=== PATIENT | female | born 1940 | race Caucasian/White ===

== ENCOUNTER 2016-11-09 16:46 | Inpatient (IN) ==
--- NOTE | 2016-11-09 17:16 | Emergency Department Note ---
Disposition Clinical Impression: Symptoms of cerebrovascular accident (CVA), Slurred speech Disposition: Admitted As Inpatient Condition: Good Referrals: NO,PCP [Primary Care Provider] - Forms: ED Satisfaction Letter Time of Disposition: 18:58 Neuro HPI - General Chief Complaint: ED Neuro Symptoms/Deficit Stated Complaint: neuro symptoms Time Seen by Provider: 11/09/16 17:08 Source: patient, family Mode of arrival: ambulatory Limitations: no limitations Nursing Notes Reviewed: Yes Vital Signs Reviewed: Yes - History of Present Illness HPI Narrative: This is a 76-year-old female who presents with slurred speech, confusion, and a frontal headache starting at about 7 AM today. Patient states she feels like she is having slight trouble expressing herself but her slurred speech is improved. Patient has no focal deficits in her arms or legs. Patient is still ambulating. Patient has had no fevers. Patient denies any chest pain or shortness of breath. Patient is on a baby aspirin a day. Patient states she had a similar episode last summer that lasted about 2 hours and then resolved. Onset of Symptoms Date: 11/09/16 Onset of Symptoms Time: 07:00 Symptom Onset Unknown: Yes Timing confirmed by: family member Location: speech History of same: Yes Severity: mild Symptoms Improving: Yes - Related Data Home Medications: Home Medications Medication Instructions Recorded Confirmed Calcium Carbonate/Vitamin D3 1 each PO DAILY 11/09/16 11/09/16 [Calcium 500-Vit D3 200 Tablet] Cholecalciferol (D-3) [Vitamin D] 1,000 unit PO DAILY 11/09/16 11/09/16 Cyanocobalamin (Vitamin B-12) 250 mcg PO DAILY 11/09/16 11/09/16 [Vitamin B-12] LORazepam [Ativan] 1 mg PO HS PRN 11/09/16 11/09/16 Allergies/Adverse Reactions: Allergies Allergy/AdvReac Type Severity Reaction Status Date / Time No Known Allergies Allergy Verified 11/09/16 16:58 All systems ED: reviewed and negative except as stated. Constitutional: Denies: fever, chills, weakness, weight change Eyes: Denies: eye pain, eye discharge, vision change ENT ED: Denies: ear pain, throat pain, dental pain, hearing loss, epistaxis, congestion, dysphagia Cardiovascular: Denies: chest pain, palpitations, dyspnea on exertion, edema, syncope Respiratory: Denies: cough, dyspnea, wheezes, hemoptysis, stridor Gastrointestinal: Denies: abdominal pain, nausea, vomiting, diarrhea, constipation, hematemesis, melena, hematochezia Genitourinary: Denies: dysuria, frequency, hematuria, discharge Musculoskeletal: Denies: back pain, neck pain, arthralgia, myalgia Integumentary: Denies: rash, abrasion, lesions Neurological: Reports: headache, other (slurred speech). Denies: weakness, numbness, paresthesias, confusion, abnormal gait, vertigo Psychiatric: Denies: anxiety, depression, suicidal thoughts, homicidal thoughts , auditory hallucinations, visual hallucinations Endocrine: Denies: fatigue Hematological/Lymphatic: Denies: easy bleeding, easy bruising Allergic/Immunologic: Denies: facial swelling, urticaria Past Medical History - Past Medical History Attestation: Yes The following information was validated with the patient. Source: patient Medical history: Reports: cancer Psychiatric history: Reports: no psych history - Social History Smoking Status: Never smoker Smokeless Tobacco Status: No Alcohol use: Reports: none Drug use: Reports: none Physical Exam - General Limitations: no limitations General appearance: alert, in no apparent distress - Head Head exam: atraumatic, normocephalic, normal inspection - Eye Eye exam: Present: normal appearance, PERRL, EOMI - ENT ENT exam: normal exam, normal oropharynx, mucous membranes moist - Expanded ENT Exam External ear exam: Present: normal external inspection Mouth exam: Present: normal external inspection Teeth exam: Present: normal inspection Throat exam: Present: normal inspection - Neck Neck exam: Present: normal inspection, full ROM, trachea midline - Chest Chest inspection: Present: normal inspection, symmetric chest wall rise - Respiratory Respiratory exam: Present: normal lung sounds bilaterally - Cardiovascular Cardiovascular exam: Present: regular rate, normal rhythm, normal heart sounds - Abdominal Exam Abdominal exam: Present: soft, Non-Tender. Absent: tenderness, distention, guarding, rebound, rigidity - Extremities Exam Extremities exam: Present: normal inspection, full ROM. Absent: tenderness, pedal edema - Expanded Upper Extremity Exam Shoulder exam: Present: normal inspection, full ROM Arm exam: Present: normal inspection, full ROM Elbow exam: Present: normal inspection, full ROM Forearm/Wrist exam: Present: normal inspection, full ROM Hand exam: Present: normal inspection, full ROM Vascular exam: Normal: capillary refill, radial pulse - Expanded Lower Extremity Exam Hip/Pelvis exam: Present: normal inspection, full ROM Upper leg exam: Present: normal inspection, full ROM Knee exam: Present: normal inspection, full ROM Lower leg exam: Present: normal inspection, full ROM Ankle exam: Present: normal inspection, full ROM Foot/toe exam: Present: normal inspection, full ROM Neurovascular/Tendon exam: Absent: motor deficit, sensory deficit, tendon deficit - Back Exam Back exam: Present: normal inspection, full ROM. Absent: tenderness - Neurological Exam Neurological exam: Present: alert, oriented X3 - Expanded Neurological Exam Patient oriented to: Present: person, place, time Speech: Present: fluid speech Cranial nerves: EOM function (II, III, IV, ): Normal, facial sensation (V): Normal, facial palsy (VII): Normal, spinal accessory function (XI): Normal, tongue deviation (XII): Normal Motor strength - LUE: 5/5 Motor strength - RUE: 5/5 Motor strength - LLE: 5/5 Motor strength - RLE: 5/5 Sensory exam upper extremity: light touch: Normal Sensory exam lower extremity: light touch: Normal Coma Scale Eye Opening: Spontaneous Coma Scale Motor Response: Obeys Commands Coma Scale Verbal Response: Oriented Coma Scale Total: 15 - Psychiatric Psychiatric exam: Present: normal affect, normal mood - Skin Skin exam: Present: warm, dry, intact, normal color Course - Consultations Consultation #1: I spoke with Dr. Rodolfo gonzales to consult. Time: 19:11 Consultation #2: I spoke with the hospitalist janet to admit. Time: 19:54 Vital Signs Temperature 98.8 F 11/09/16 16:51 Pulse Rate 82 11/09/16 16:51 Respiratory Rate 18 11/09/16 16:51 Blood Pressure 186/91 11/09/16 16:51 O2 Sat by Pulse Oximetry 98 11/09/16 16:51 Temperature 98.8 F 11/09/16 16:51 Pulse Rate 82 11/09/16 16:51 Respiratory Rate 18 11/09/16 16:51 Blood Pressure 186/91 11/09/16 16:51 O2 Sat by Pulse Oximetry 98 11/09/16 16:51 Oxygen Delivery Oxygen Delivery Room Air Neuro Symptoms/Deficit - Medical Records Medical records reviewed: Yes I reviewed the patient's medical records. - Lab Data Lab results reviewed: Yes I reviewed the patient's lab results. Result diagrams: 11/09/16 17:46 11/09/16 17:46 Lab Results 11/09/16 11/09/16 11/09/16 Range/Units 17:10 17:46 17:46 WBC 7.4 (4.3-11.1) K/mcL RBC 4.04 (3.82-4.97) M/mcL Hgb 12.7 (11.5-15.4) g/dL Hct 39.4 (35.3-44.9) % MCV 97.5 (83.0-100.0) fL MCH 31.4 (28.0-33.3) pg MCHC 32.2 (31.6-35.5) g/dL RDW 12.4 (11.5-14.5) % Plt Count 289 (140-400) K/mcL MPV 9.5 (9.4-12.4) fL Immature Gran % 0.3 (0-4) % Seg Neutrophils % 70.1 % Lymphocytes % 17.0 % Monocytes % 10.2 % Eosinophils % 1.6 % Basophils % 0.8 % Neutrophils # 5.2 (1.6-8.9) K/mcL Lymphocytes # 1.3 (0.6-4.6) K/mcL Monocytes # 0.8 (0.0-1.3) K/mcL Eosinophils # 0.1 (0.0-0.6) K/mcL Basophils # 0.1 (0.0-0.2) K/mcL PT 11.4 (9.4-12.1) Seconds INR 1.1 APTT 31.0 (26.0-36.0) Seconds Sodium (136-145) mEq/L Potassium (3.5-4.5) mEq/L Chloride (98-109) mEq/L Carbon Dioxide (19-29) mEq/L BUN (7-20) mg/dL Creatinine (0.57-1.11) mg/dL Est GFR ( Amer) (> 60) Est GFR (Non-Af Amer) (> 60) BUN/Creatinine Ratio (6-26) Glucose (70-99) mg/dL Calculated Osmolality (280-300) Calcium (8.6-10.8) mg/dL Total Bilirubin (0.2-1.2) mg/dL Direct Bilirubin (0.0-0.5) mg/dL Indirect Bilirubin (0.0-1.2) mg/dL AST (5-34) Units/L ALT (0-55) Units/L Alkaline Phosphatase (38-126) Units/L Troponin I (0-0.03) ng/mL Serum Total Protein (6.0-8.3) g/dL Albumin (3.5-5.0) g/dL Globulin (2.4-3.5) g/dL Albumin/Globulin Ratio (1.1-2.2) TSH (0.350-4.840) mcIU/mL Urine Color Yellow (Yellow) Urine Clarity Clear (Clear) Urine pH 7.5 (5.0-8.0) pH Units Ur Specific [place] 1.009 L (1.010-1.025) Urine Protein Negative (Neg-Trace) mg/dL Urine Glucose (UA) Normal (Normal) mg/dL Urine Ketones Negative (Negative) mg/dL Urine Blood Small H (Negative) Urine Nitrite Negative (Negative) Urine Bilirubin Negative (Negative) Urine Urobilinogen Normal (Normal) mg/dL Ur Leukocyte Esterase Moderate H (Negative) Urine Microscopic RBC 0-3 (0-3) per hpf Urine Microscopic WBC 0-3 (0-3) per hpf Ur Squamous Epith Cells Many H (None-Few) per lpf Urine Bacteria None Seen (None-Few) per hpf Hyaline Casts None Seen (None-Few) per lpf Ur Culture Indicated? YES A (NO) 11/09/16 11/09/16 Range/Units 17:46 17:46 WBC (4.3-11.1) K/mcL RBC (3.82-4.97) M/mcL Hgb (11.5-15.4) g/dL Hct (35.3-44.9) % MCV (83.0-100.0) fL MCH (28.0-33.3) pg MCHC (31.6-35.5) g/dL RDW (11.5-14.5) % Plt Count (140-400) K/mcL MPV (9.4-12.4) fL Immature Gran % (0-4) % Seg Neutrophils % % Lymphocytes % % Monocytes % % Eosinophils % % Basophils % % Neutrophils # (1.6-8.9) K/mcL Lymphocytes # (0.6-4.6) K/mcL Monocytes # (0.0-1.3) K/mcL Eosinophils # (0.0-0.6) K/mcL Basophils # (0.0-0.2) K/mcL PT (9.4-12.1) Seconds INR APTT (26.0-36.0) Seconds Sodium 139 (136-145) mEq/L Potassium 3.9 (3.5-4.5) mEq/L Chloride 103 (98-109) mEq/L Carbon Dioxide 28 (19-29) mEq/L BUN 13 (7-20) mg/dL Creatinine 0.84 (0.57-1.11) mg/dL Est GFR ( Amer) > 60 (> 60) Est GFR (Non-Af Amer) > 60 (> 60) BUN/Creatinine Ratio 15 (6-26) Glucose 111 H (70-99) mg/dL Calculated Osmolality 289 (280-300) Calcium 10.4 (8.6-10.8) mg/dL Total Bilirubin 0.3 (0.2-1.2) mg/dL Direct Bilirubin 0.1 (0.0-0.5) mg/dL Indirect Bilirubin 0.2 (0.0-1.2) mg/dL AST 17 (5-34) Units/L ALT 15 (0-55) Units/L Alkaline Phosphatase 51 (38-126) Units/L Troponin I 0.00 (0-0.03) ng/mL Serum Total Protein 7.3 (6.0-8.3) g/dL Albumin 3.5 (3.5-5.0) g/dL Globulin 3.8 H (2.4-3.5) g/dL Albumin/Globulin Ratio 0.9 L (1.1-2.2) TSH 2.711 (0.350-4.840) mcIU/mL Urine Color (Yellow) Urine Clarity (Clear) Urine pH (5.0-8.0) pH Units Ur Specific [place] (1.010-1.025) Urine Protein (Neg-Trace) mg/dL Urine Glucose (UA) (Normal) mg/dL Urine Ketones (Negative) mg/dL Urine Blood (Negative) Urine Nitrite (Negative) Urine Bilirubin (Negative) Urine Urobilinogen (Normal) mg/dL Ur Leukocyte Esterase (Negative) Urine Microscopic RBC (0-3) per hpf Urine Microscopic WBC (0-3) per hpf Ur Squamous Epith Cells (None-Few) per lpf Urine Bacteria (None-Few) per hpf Hyaline Casts (None-Few) per lpf Ur Culture Indicated? (NO) - Radiology Data Radiology results reviewed: Yes I reviewed the patient's radiology results. - EKG Data EKG attestation: Yes I reviewed and interpreted this EKG. EKG shows normal: sinus rhythm Rate: normal Rhythm: NSR [place]/QRS: normal Interpretation: no acute changes, normal EKG TPA Checklist - LKW: 3-4.5 hrs Add. Contraindications Patient/family understanding: The patient/family members have been counseled and understood the risk, benefit , and alternatives of treatment.
[2016-11-09 17:26] LABS: Bilirubin,Urine Negative (Negative); Blood,Urine Small (Negative); Clarity,Urine Clear (Clear); Color,Urine Yellow (Yellow); Glucose,Urine (UA) Normal (Normal); Ketones,Urine Negative (Negative); Leukocyte Esterase,Urine Moderate (Negative); Nitrite,Urine Negative (Negative); PH,Urine 7.5 pH Units (5.0-8.0); Protein,Urine Negative (Neg-Trace); Specific Gravity,Urine 1.009 (1.010-1.025); Urobilinogen,Urine Normal (Normal)
[2016-11-09 17:28] LABS: Bacteria,Urine None Seen per hpf (None-Few); Hyaline Casts,Urine None Seen per lpf (None-Few); RBC,Urine 0-3 per hpf (0-3); Squamous Epithelial Cell,Urine Many per lpf (None-Few); WBC,Urine 0-3 per hpf (0-3)
[2016-11-09 18:17] LABS: Basophils # 0.1 K/mcL (0.0-0.2); Basophils % 0.8 %; Eosinophils # 0.1 K/mcL (0.0-0.6); Eosinophils % 1.6 %; Hematocrit 39.4 % (35.3-44.9); Hemoglobin 12.7 g/dL (11.5-15.4); Immature Granulocytes % 0.3 % (0-4); Lymphocytes # 1.3 K/mcL (0.6-4.6); Mean Corpuscular HGB Conc 32.2 g/dL (31.6-35.5); Mean Corpuscular Hemoglobin 31.4 pg (28.0-33.3); Mean Corpuscular Volume 97.5 fL (83.0-100.0); Mean Platelet Volume 9.5 fL (9.4-12.4); Monocytes # 0.8 K/mcL (0.0-1.3); Monocytes % 10.2 %; Neutrophils # 5.2 K/mcL (1.6-8.9); Platelet Count 289 K/mcL (140-400); Red Blood Count 4.04 M/mcL (3.82-4.97); Red Cell Distribution Width 12.4 % (11.5-14.5); Segmented Neutrophils % 70.1 %
[2016-11-09 18:26] LABS: INR 1.1; Prothrombin Time 11.4 Seconds (9.4-12.1)
[2016-11-09 18:32] LABS: Alanine Aminotransferase 15 Units/L (0-55); Albumin 3.5 g/dL (3.5-5.0); Albumin/Globulin Ratio 0.9 (1.1-2.2); Alkaline Phosphatase 51 Units/L (38-126); Aspartate Amino Transferase 17 Units/L (5-34); BUN/Creatinine Ratio 15 (6-26); Bilirubin,Direct 0.1 mg/dL (0.0-0.5); Bilirubin,Indirect 0.2 mg/dL (0.0-1.2); Bilirubin,Total 0.3 mg/dL (0.2-1.2); Blood Urea Nitrogen 13 mg/dL (7-20); Calcium 10.4 mg/dL (8.6-10.8); Carbon Dioxide 28 mEq/L (19-29); Chloride 103 mEq/L (98-109); Globulin 3.8 g/dL (2.4-3.5); Glucose 111 mg/dL (70-99); Osmolality,Calculated 289 (280-300); Potassium 3.9 mEq/L (3.5-4.5); Sodium 139 mEq/L (136-145); Total Protein 7.3 g/dL (6.0-8.3); eGFR For African Americans > 60 (> 60); eGFR For Non-African Americans > 60 (> 60)
[2016-11-09 18:54] LABS: Thyroid Stimulating Hormone 2.711 mcIU/mL (0.350-4.840)
[2016-11-09] MEDS ORDERED: Aspirin 325 MG TABLET PO ONE (18:58)
--- NOTE | 2016-11-09 23:19 | Internal Med History&Physical ---
Date of Encounter: 11/09/16 Time of Encounter: 23:17 Assessment and Plan (1) Slurred speech Current visit: Yes Status: Acute Patient admitted due to confusion, headache and slurred speech. CT did not reveal any intracranial bleeding or acute ischemic events. Hypertensive upon presentation. We will obtain a CT angiogram of the head for further evaluation. Would also consult with neurology for recommendations. Continue with aspirin. Continue with the stockings. Neuro checks. Echo. ESR. Internal Medicine - H&P: HPI Chief complaint: headache Admitted From: Emergency Dept Plans for Post Hospital Care: Home History of present illness: Ms. Rojas is a 76 year old female presented to emergency Department complaining of severe headache in the frontal area, and her speech and increased confusion. She denies focal motor weakness. Upon presentation in the emergency department and the blood pressure was 186/91, heart rate was 82/m , respiratory rate was 18/m, oxygen saturation was 98%. Initial blood work revealed hemopneumothorax 0.4, hematocrit 39, platelet count 189,000. INR 1.1. Sodium 139, potassium 3.9, chloride 103, bicarbonate 28, BUN 28, creatinine 0.84, glucose 111. Head CT did not reveal acute abnormality. Chest x-ray was also unremarkable. The patient was admitted for further management and workup. Patient denies fever, chills, diarrhea. Past Med Surg Social Fam HX - Past Medical History Medical history: cancer Psychiatric history: no psych history - Social History Smoking Status: Never smoker Smokeless Tobacco Status: No Alcohol use: none Drug use: none Internal Medicine - H&P: Meds Calcium Carbonate/Vitamin D3 [Calcium 500-Vit D3 200 Tablet] 1 each PO DAILY [History] Cholecalciferol (D-3) [Vitamin D] 1,000 unit PO DAILY 11/09/16 [History] Cyanocobalamin (Vitamin B-12) [Vitamin B-12] 250 mcg PO DAILY 11/09/16 [History] LORazepam [Ativan] 1 mg PO HS PRN 11/09/16 [History] Allergies No Known Allergies Allergy (Verified 11/09/16 16:58) All Systems PM: A 10-system review of systems was performed and is negative for pertinent findings except as documented above in the HPI. - Constitutional Constitutional: as per HPI, no chills, no fever(s), no night sweats - EENT Eyes: as per HPI, no change in vision, no discharge, no pain, no photophobia Ears: as per HPI, no ear discharge, no ear pain, no tinnitus Nose, mouth and throat: as per HPI, no dysphagia, no nasal discharge, no neck pain, no sore throat - Breasts Breasts: as per HPI - Cardiovascular Cardiovascular ROS IM: as per HPI, no chest pain, no diaphoresis, no dyspnea, no lightheadedness, no palpitations, no syncope - Respiratory Respiratory: as per HPI, no cough, no dyspnea, no wheezing, no excessive phlegm production - Gastrointestinal Gastrointestinal: as per HPI, no abdominal pain, no diarrhea, no hematemesis, no hematochezia, no melena, no nausea, no vomiting - Genitourinary Genitourinary: as per HPI, no change in urinary stream, no dysuria, no flank pain, no hematuria Menstruation: as per HPI - Musculoskeletal Musculoskeletal ROS IM: as per HPI, no numbness, no tingling - Integumentary Integumentary IM: as per HPI, no rash, no unusual bruising - Neurological Neurological ROS: as per HPI, no confusion, no convulsions, no focal weakness, no numbness, no tingling, no tremor(s) - Psychiatric Psychiatric: as per HPI - Endocrine Endocrine IM: as per HPI - Hematologic/Lymphatic Hematologic/Lymphatic: as per HPI, no easy bruising - Allergic/Immunologic Allergic/Immunologic: as per HPI - Constitutional Vitals: Temp Pulse Resp BP Pulse Ox 98.6 F 77 16 140/78 96 11/09/16 22:18 11/09/16 22:18 11/09/16 22:18 11/09/16 22:18 11/09/16 21:56 General appearance: Present: cooperative, A&O X 2, mild distress - Head Head exam: Present: atraumatic, normocephalic - Eye Eye exam: Present: PERRL, conjuntiva pink, sclera anicteric Pupils: Present: PERRL - Neck Neck exam general surgery: Present: supple, trachea midline. Absent: lymphadenopathy - Respiratory Respiratory exam: Present: CTAB. Absent: accessory muscle use, rales, rhonchi, wheezes - Cardiovascular Cardiovascular exam: Present: RRR, +S1, +S2. Absent: diastolic murmur, gallop, rubs, systolic murmur - GI/Abdominal GI/Abdominal exam: Present: normal bowel sounds, soft, no peritoneal signs. Absent: distended, tenderness - Extremities Exam Extremities exam: Present: warm, radial pulses palpable and symetrical. Absent : calf tenderness, cyanotic, pedal edema - Neurological Exam Neurological exam: Present: CN II-XII intact, oriented X3, no focal deficits. Absent: pronater drift, facial droop, speech deficit - Skin Skin exam: Present: dry, intact Internal Med - H&P Results - Labs CBC & Chem 7: 11/09/16 17:46 11/09/16 17:46
[2016-11-09] MEDS ORDERED: Naloxone 0.4 MG/ML INJ IVP PRN (23:22)
[2016-11-09 23:45] LABS: Amphetamine Screen,Urine Negative ng/mL (Cutoff=1000); Barbiturate Screen,Urine Negative ng/mL (Cutoff=200); Benzodiazepines Screen,Urine Negative ng/mL (Cutoff=200); Cannabinoid Screen,Urine Negative ng/mL (Cutoff = 50); Cocaine Screen,Urine Negative ng/mL (Cutoff= 300); Opiate Screen,Urine Negative ng/mL (Cutoff=300); Phencyclidine Screen,Urine Negative ng/mL (Cutoff=25)
[2016-11-10] MEDS: Acetaminophen 325 MG TABLET PO PRN ×2 (00:18→11:06)
[2016-11-10] MEDS: 0.9 % Sodium Chloride 1,000 ML IVC SCH ×2 (00:18→16:00)
[2016-11-10 01:10] LABS: Basophils % 0.5 %; Eosinophils # 0.1 K/mcL (0.0-0.6); Eosinophils % 1.4 %; Hematocrit 41.6 % (35.3-44.9); Hemoglobin 13.6 g/dL (11.5-15.4); Immature Granulocytes % 0.5 % (0-4); Lymphocytes # 1.3 K/mcL (0.6-4.6); Lymphocytes % 14.9 %; Mean Corpuscular HGB Conc 32.7 g/dL (31.6-35.5); Mean Corpuscular Hemoglobin 31.6 pg (28.0-33.3); Mean Corpuscular Volume 96.5 fL (83.0-100.0); Mean Platelet Volume 9.5 fL (9.4-12.4); Monocytes # 0.8 K/mcL (0.0-1.3); Monocytes % 9.6 %; Neutrophils # 6.4 K/mcL (1.6-8.9); Platelet Count 305 K/mcL (140-400); Red Blood Count 4.31 M/mcL (3.82-4.97); Red Cell Distribution Width 12.3 % (11.5-14.5); Segmented Neutrophils % 73.1 %
[2016-11-10 01:20] LABS: Alanine Aminotransferase 12 Units/L (0-55); Albumin 3.6 g/dL (3.5-5.0); Albumin/Globulin Ratio 0.9 (1.1-2.2); Alkaline Phosphatase 52 Units/L (38-126); Aspartate Amino Transferase 17 Units/L (5-34); BUN/Creatinine Ratio 10 (6-26); Bilirubin,Direct 0.2 mg/dL (0.0-0.5); Bilirubin,Indirect 0.4 mg/dL (0.0-1.2); Bilirubin,Total 0.6 mg/dL (0.2-1.2); Blood Urea Nitrogen 9 mg/dL (7-20); Carbon Dioxide 29 mEq/L (19-29); Chloride 100 mEq/L (98-109); Chol/HDL Ratio 3.2 (0-4.9); Cholesterol 176 mg/dL (< 200); Globulin 4.1 g/dL (2.4-3.5); Glucose 111 mg/dL (70-99); HDL Cholesterol 55 mg/dL (40-59); LDL Cholesterol,Calculated 107 mg/dL (0-99); Magnesium 1.8 mg/dL (1.6-2.6); Osmolality,Calculated 283 (280-300); Potassium 3.5 mEq/L (3.5-4.5); Sodium 137 mEq/L (136-145); Total Protein 7.7 g/dL (6.0-8.3); Triglycerides 71 mg/dL (< 150); eGFR For African Americans > 60 (> 60); eGFR For Non-African Americans > 60 (> 60)
[2016-11-10 01:21] LABS: INR 1.1; Prothrombin Time 12.1 Seconds (9.4-12.1)
[2016-11-10] MEDS: *HR* Heparin 5,000 UNIT/ML VIAL SQ SCH ×2 (05:39→17:20)
[2016-11-10] MEDS ORDERED: Famotidine 20 MG/2 ML VIAL IVP SCH (06:00)
[2016-11-10] MEDS: Aspirin 81 MG TAB.CHEW PO SCH (11:08)
[2016-11-10] MEDS: Famotidine 20 MG/2 ML VIAL IVP SCH (17:20)
--- NOTE | 2016-11-10 17:33 | Internal Med Progress Note ---
Date of Encounter: 11/10/16 Time of Encounter: 17:29 - Assessment and plan (1) Symptoms of cerebrovascular accident (CVA) Current Visit: Yes Status: Acute Assessment and plan: Admitted for possible CVA/TIA ASA/Statin MRI : Negative MRA neck :WNL MRA head : P3 stenosis of both [employer] ECHO pending. Will get Neuro tomorrow. (2) Slurred speech Current Visit: Yes Status: Acute Assessment and plan: will get Neuro tomorrow DVT Prophylaxis : Heparin discussed with family all findings. - Subjective Interval history: seen and examined. patient still has slurred speech no new weakness. - Constitutional Vitals: Temp Pulse Resp BP Pulse Ox 97.6 F 63 15 151/79 97 11/10/16 07:00 11/10/16 15:00 11/10/16 15:00 11/10/16 15:00 11/10/16 15:00 General appearance: Present: cooperative, A&O X 2, mild distress - Head Head exam: Present: atraumatic, normocephalic - Eye Eye exam: Present: PERRL, conjuntiva pink, sclera anicteric Pupils: Present: PERRL - Neck Neck exam general surgery: Present: supple, trachea midline. Absent: lymphadenopathy - Respiratory Respiratory exam: Present: CTAB. Absent: accessory muscle use, rales, rhonchi, wheezes - Cardiovascular Cardiovascular exam: Present: RRR, +S1, +S2. Absent: diastolic murmur, gallop, rubs, systolic murmur - GI/Abdominal GI/Abdominal exam: Present: normal bowel sounds, soft, no peritoneal signs. Absent: distended, tenderness - Extremities Exam Extremities exam: Present: warm, radial pulses palpable and symetrical. Absent : calf tenderness, cyanotic, pedal edema - Neurological Exam Neurological exam: Present: CN II-XII intact, oriented X3, no focal deficits. Absent: pronater drift, facial droop, speech deficit - Skin Skin exam: Present: dry, intact Internal Medicine: Result - Labs CBC & Chem 7: 11/10/16 00:34 11/10/16 00:34 Labs: Short CBC 11/10/16 Range/Units 00:34 WBC 8.8 (4.3-11.1) K/mcL Hgb 13.6 (11.5-15.4) g/dL Hct 41.6 (35.3-44.9) % Plt Count 305 (140-400) K/mcL Neutrophils # 6.4 (1.6-8.9) K/mcL BMP 11/10/16 00:34 Sodium 137 Potassium 3.5 Chloride 100 Carbon Dioxide 29 BUN 9 Creatinine 0.87 Glucose 111 H Calcium 10.0 Cardiac Enzymes 11/10/16 11/10/16 Range/Units 00:34 06:29 Troponin I 0.03 0.01 (0-0.03) ng/mL Liver Function 11/10/16 Range/Units 00:34 Total Bilirubin 0.6 (0.2-1.2) mg/dL Direct Bilirubin 0.2 (0.0-0.5) mg/dL AST 17 (5-34) Units/L ALT 12 (0-55) Units/L Alkaline Phosphatase 52 (38-126) Units/L Albumin 3.6 (3.5-5.0) g/dL - ABG Interpretation ABG results: PT/INR, D-dimer PT 12.1 Seconds (9.4-12.1) 11/10/16 00:34 - Impressions Impressions Head MRA 11/10/16 00:00 IMPRESSION: Apparent focal short-segment occlusions of the P3 segments of both nutrient management specialist, probably related to artifact. Otherwise, no flow limiting stenosis or branch occlusion identified. D/ / Torito Golden MD / Torito Golden MD Interpreting Provider: Torito Golden MD Brain MRI 11/10/16 05:00 IMPRESSION: No acute infarct. D/ / Torito Golden MD / Torito Golden MD Interpreting Provider: Torito Golden MD Neck MRA 11/10/16 05:00 IMPRESSION: No flow limiting stenosis or branch occlusion identified within the neck. D/ / Torito Golden MD / Torito Golden MD Interpreting Provider: Torito Golden MD Consult Discharge Plan - Plan Referrals: Thad Jimenez MD [Primary Care Provider] -
[2016-11-11] MEDS: *HR* Heparin 5,000 UNIT/ML VIAL SQ SCH ×2 (05:17→17:11)
[2016-11-11] MEDS: Famotidine 20 MG/2 ML VIAL IVP SCH ×2 (05:18→17:23)
[2016-11-11] MEDS: 0.9 % Sodium Chloride 1,000 ML IVC SCH ×2 (08:06→21:33)
[2016-11-11] MEDS: Aspirin 81 MG TAB.CHEW PO SCH (08:06)
--- NOTE | 2016-11-11 08:06 | Electrocardiograph Report ---
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
--- NOTE | 2016-11-11 10:20 | Internal Med Progress Note ---
<Adonay Holt - Last Filed: 11/11/16 17:24> Date of Encounter: 11/11/16 Time of Encounter: 10:20 - Assessment and plan (1) Symptoms of cerebrovascular accident (CVA) Current Visit: Yes Status: Acute Assessment and plan: Patient presented with frontal headache and slurred speech/difficulty finding words. Patient and son report no history of seizures or previous stroke. Denies any other medical history besides acid reflux. Son reports one episode last year where patient had similar symptoms that lasted for less than two hours. When she followed up with PCP in [place] she was told it was a possible TIA but there was no evidence of stroke. Patient was admitted for new onset DUBOIS, slurred speech, confusion. 11/11: Today patient remains somewhat confused and continues to have difficulty responding at times with expressive dysphasia. She appears to understand most of what I am saying to her, but her responses are garbled. She has difficulty following commands during strength testing, however when she finally understands what to do she doesn't have any weakness noted. CN2-12 are intact. Reflexes are 2/4 b/l. Sensation to light touch is intact b/l. -Started ASA/Lipitor 80mg/day -ECHO pending -Head CT: chronic small vessel ischemic disease; no acute abnormality -Head CTA: Diminished enhancement of the posterior circulation and right MCA is of uncertain etiology and significance and could be related to contrast bolus timing and/or artifact. -Head MRA: Apparent focal short-segment occlusions of the P3 segments of both insurance verification representative, probably related to artifact. Otherwise, no flow limiting stenosis or branch occlusion identified. 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 CSF has been obtained and sent for further evaluation. Also work-up for metabolic encephalopathy including ammonia , B12, folate, lactic acid and RPR -Appreciate neurology input. - Continue to monitor. (2) UTI (urinary tract infection) Current Visit: Yes Status: Acute Assessment and plan: Patient with UA showing small amount of blood, moderate leukocyte esterase. Prelim culture showing >100,000 CFU gram + cocci. Patient with temp 100.4 yesterday, 99.0 today. Denies dysuria, blood in urine, changes in frequency. No suprapubic tenderness. Patient appears to be asymptomatic. However will treat since its is possible this is contributing to patients confusion. -Day 2 Ceftriaxone -Will wait for culture Qualifiers: Urinary tract infection type: site unspecified Hematuria presence: without hematuria Qualified Code(s): N39.0 - Urinary tract infection, site not specified (3) Acid reflux Current Visit: Yes Status: Acute Assessment and plan: Patient with a history of acid reflux. Have continued home medication. Reports no burning/reflux at this time. Qualifiers: Esophagitis presence: esophagitis presence not specified Qualified Code(s) : K21.9 - Gastro-esophageal reflux disease without esophagitis (4) DVT prophylaxis Current Visit: Yes Status: Acute Assessment and plan: Pauda score of 4 (reduced mobility/age). Continue DVT prophylaxis with 5,000 SQ Heparin BID. - Subjective Interval history: I have seen and examined the patient this morning. Patient is still somewhat confused and having trouble finding the correct words to say. Per son she seems to be having trouble with her vision. When she dropped something she repeatedly reached for her foot instead of the dropped object. She reports she does not have a DUBOIS. She feels frustrated that she cannot communicate well at this time. She denies weakness, numbness, tingling anywhere. She reports no burning with urination, increased frequency, blood in her urine. She said she had a very hard BM this AM and requested prune juice for this. Denies chills, sob, chest pain, palpitations, abdominal pain, diarrhea, or any other symptoms at this time. - Constitutional Vitals: Temp Pulse Resp BP Pulse Ox 99 F 78 20 146/76 94 L 11/11/16 06:59 11/11/16 07:57 11/11/16 07:57 11/11/16 07:57 11/11/16 08:00 General appearance: Present: cooperative, A&O X 2, no acute distress Exam: A&Ox2: Patient knows she is in the hospital and the year. She was unable to say her name. She continued to make garbled noises when asked what her name was. However when I said her name she corrected me on how to say it. - Head Head exam: Present: atraumatic, normocephalic - Eye Eye exam: Present: PERRL, conjuntiva pink, sclera anicteric Pupils: Present: PERRL - ENT ENT exam: Present: mucous membranes moist - Neck Neck exam general surgery: Present: supple, trachea midline. Absent: lymphadenopathy - Respiratory Respiratory exam: Present: CTAB. Absent: accessory muscle use, rales, rhonchi, wheezes - Cardiovascular Cardiovascular exam: Present: RRR, +S1, +S2. Absent: diastolic murmur, gallop, rubs, systolic murmur - GI/Abdominal GI/Abdominal exam: Present: normal bowel sounds, soft, no peritoneal signs. Absent: distended, tenderness - Extremities Exam Extremities exam: Present: warm, radial pulses palpable and symetrical. Absent : calf tenderness, cyanotic, pedal edema - Back Exam Back exam: Present: normal inspection - Neurological Exam Neurological exam: Present: alert. Absent: oriented X3 (oriented to place/ year. Patient was unable to state name. When asked what her name is, she responded with garbled speech.), facial droop Additional comments: -The patient is alert upon entering the room. -Her speech is garbled at times. For the most part it appears that she is comprehending but is unable or slow to find her words when responding. -Reflexes 2/4 bilateral bicep, tricep, patellar, achilles -Strength 5/5 bilateral upper and lower extremity. However patient was having a hard time following commands. Had to ask many times when doing strength testing. When asked to lift the right leg patient kept lifting the right arm. -Patient was unable to preform finger to nose testing. She continued to be confused after asking to touch her nose many times. - Skin Skin exam: Present: dry, intact Internal Medicine: Result - Labs CBC & Chem 7: 11/10/16 00:34 11/10/16 00:34 - ABG Interpretation ABG results: PT/INR, D-dimer PT 12.1 Seconds (9.4-12.1) 11/10/16 00:34 - Impressions Impressions Head CTA 11/09/16 22:56 IMPRESSION: Diminished enhancement of the posterior circulation and right MCA is of uncertain etiology and significance and could be related to contrast bolus timing and/or artifact. However, given the history, would consider obtaining MRI/MRA for further evaluation. The findings were sent to the Radiology Results Communication [facility] at 11:50 pm on 11/09/2016to be communicated to a licensed caregiver. D/ / Torito Golden MD / Torito Golden MD Interpreting Provider: Torito Golden MD Head MRA 11/10/16 00:00 IMPRESSION: Apparent focal short-segment occlusions of the P3 segments of both insurance verification representative, probably related to artifact. Otherwise, no flow limiting stenosis or branch occlusion identified. D/ / Torito Golden MD / Torito Golden MD Interpreting Provider: Torito Golden MD Brain MRI 11/10/16 05:00 IMPRESSION: No acute infarct. D/ / Torito Golden MD / Torito Golden MD Interpreting Provider: Torito Golden MD Neck MRA 11/10/16 05:00 IMPRESSION: No flow limiting stenosis or branch occlusion identified within the neck. D/ / Torito Golden MD / Torito Golden MD Interpreting Provider: Torito Golden MD Consult Discharge Plan - Plan Referrals: Thad Jimenez MD [Primary Care Provider] - <Rory Medel P - Last Filed: 11/11/16 17:55> Date of Encounter: 11/11/16 - Assessment and plan (1) Symptoms of cerebrovascular accident (CVA) Current Visit: Yes Status: Acute (2) Slurred speech Current Visit: Yes Status: Acute - Constitutional Vitals: Temp Pulse Resp BP Pulse Ox 99.4 F 73 16 137/67 100 11/11/16 15:25 11/11/16 17:00 11/11/16 17:00 11/11/16 17:00 11/11/16 17:00 Internal Medicine: Result - Labs CBC & Chem 7: 11/10/16 00:34 11/10/16 00:34 - ABG Interpretation ABG results: PT/INR, D-dimer PT 12.1 Seconds (9.4-12.1) 11/10/16 00:34 - Attending Attestation I examined this patient and my medical decision-making was reviewed with the CLINICAL PSYCHOLOGIST LICENSED/PA/Advanced Practice Nurse/Resident Physician. I agree with the documented findings, disposition and treatment plan as described except to the extent set forth below. Neurologic input appreciated. Lumbar puncture done and we will get the shift mgr to follow up on the report. This patient needs more than few midnight stays as she has worsened in the last 24 hours.
--- NOTE | 2016-11-11 10:52 | Neurology - Consult Note ---
<AnkurCarlos Manuel - Last Filed: 11/11/16 13:01> Date of Encounter: 11/11/16 Time of Encounter: 10:49 Assessment and Plan (1) Acute encephalopathy Current Visit: Yes Status: Acute Unclear etiology at this point as head imaging has been inconclusive and UTI may be contaminant Her symptoms have persisted over 24 hours, so unlikely TIA Obtain EEG to rule out possible underlying seizure activity Will evaluate metabolic causes with ammonia, B12, folate; also obtaining lactic acid and RPR Echocardiogram has been ordered, results are pending History of Present Illness Chief complaint: slurred speech, AMS HPI: Ms. Rojas is a 76 year old female who presented initially with slurred speech. She is confused at the moment and unable to provide any history, but son and are at bedside and able to assist with history. Son states the symptoms started on Wednesday morning when his noticed the patient had slurred speech. She also a headache in the front side of her head. Son claims that mother has never had any similar episodes in the past. He states that her mental status is roughly unchanged since yesterday when he first saw her. Son also notes that patient was recently started on Ativan to help her sleep 3 weeks ago and she did have an episode of falling without any trauma. Son also states that patient had previous urinary tract infections but never had altered mental status. Of note, patient does have history of breast cancer and was previously on chemotherapy and radiation. Past Med Surg Social Fam HX - Past Medical History Medical history: cancer Psychiatric history: no psych history - Social History Smoking Status: Never smoker Smokeless Tobacco Status: No Alcohol use: none Drug use: none Medications and Allergies Calcium Carbonate/Vitamin D3 [Calcium 500-Vit D3 200 Tablet] 1 each PO DAILY [History] Cholecalciferol (D-3) [Vitamin D] 1,000 unit PO DAILY 11/09/16 [History] Cyanocobalamin (Vitamin B-12) [Vitamin B-12] 250 mcg PO DAILY 11/09/16 [History] LORazepam [Ativan] 1 mg PO HS PRN 11/09/16 [History] Allergies No Known Allergies Allergy (Verified 11/09/16 16:58) ROS unobtainable: due to mental status All Systems: A 10-system review of systems was performed and is negative for pertinent findings except as documented above in the HPI. Physical Examination - Vital Signs Vital Signs: Initial Vital Signs Temp Pulse Resp BP Pulse Ox 98.8 F 82 18 186/91 98 11/09/16 16:51 11/09/16 16:51 11/09/16 16:51 11/09/16 16:51 11/09/16 16:51 - Constitutional General appearance: comfortable - Neurologic Sensorimotor examination: intact Motor examination - right side: 4/5: biceps, triceps, auto parts clerk, hip flexors Motor examination - left side: 4/5: biceps, triceps, hip flexors, auto parts clerk Reflex and gait examination: intact Reflexes: Biceps: 2+, Patella: 2+ Mental Status Examination: awake, alert, no agnosia, no aphasia, does not follow commands (only follows intermittently, need to ask several times for appropriate response), delerious, rambling Cranial nerve examination: PERRL, EOMI, visual rizvi intact, sensory to face intact, mastication intact, no facial asymmetry is present, no dysarthria, hearing is intact symmetrically, soft palate elevates bilaterally upon phonation , gag reflex intact, flexes SCM and trapezius muscles symmetrically with full power, tongue protrudes midline, no atrophy or facial fasiculations present Results - Laboratory Findings CBC and BMP: 11/10/16 00:34 11/10/16 00:34 Abnormal lab findings: Abnormal lab results ESR 35 mm/hr (0-15) H 11/09/16 18:46 Glucose 111 mg/dL (70-99) H 11/10/16 00:34 POC Glucose 93 (58-89) H 11/10/16 17:29 Globulin 4.1 g/dL (2.4-3.5) H 11/10/16 00:34 Albumin/Globulin Ratio 0.9 (1.1-2.2) L 11/10/16 00:34 LDL Cholesterol, Calc 107 mg/dL (0-99) H 11/10/16 00:34 Ur Specific [place] 1.009 (1.010-1.025) L 11/09/16 17:10 Urine Blood Small (Negative) H 11/09/16 17:10 Ur Leukocyte Esterase Moderate (Negative) H 11/09/16 17:10 Ur Squamous Epith Cells Many per lpf (None-Few) H 11/09/16 17:10 Ur Culture Indicated? YES (NO) A 11/09/16 17:10 Consult Discharge Plan - Plan Referrals: Thad Jimenez MD [Primary Care Provider] - <Placido Reynolds Bianka - Last Filed: 11/11/16 17:19> Date of Encounter: 11/11/16 Time of Encounter: 17:15 Assessment and Plan (1) Acquired aphasia Current Visit: Yes Status: Acute At this juncture I am concerned about the possibility of something such as herpes encephalitis. She has developed expressive as well as some receptive aphasia however she has no obviously identifiable left temporal lobe lesion. She moves the upper and lower extremities freely. She does have headache, along with confusion. Her speech is classic jargon. Further recommendations will be made pending the results of the lumbar puncture. I anticipate starting empiric acyclovir. The case was discussed with the medicine team. History of Present Illness HPI: Ms. Rojas is a 76 year old female who was seen and examined independently. I agree with Dr. Pascual's history as stated above. ROS unobtainable: due to mental status All Systems: A 10-system review of systems was performed and is negative for pertinent findings except as documented above in the HPI. Physical Examination - Vital Signs Vital Signs: Initial Vital Signs Temp Pulse Resp BP Pulse Ox 98.8 F 82 18 186/91 98 11/09/16 16:51 11/09/16 16:51 11/09/16 16:51 11/09/16 16:51 11/09/16 16:51 - Neurologic Mental Status Examination: makes eye contact, localizes noxious stimulation, expressive aphasia, receptive aphasia, motor apraxia, not reliable historian Results - Laboratory Findings CBC and BMP: 11/10/16 00:34 11/10/16 00:34 Abnormal lab findings: Abnormal lab results ESR 35 mm/hr (0-15) H 11/09/16 18:46 Glucose 111 mg/dL (70-99) H 11/10/16 00:34 POC Glucose 93 (58-89) H 11/10/16 17:29 Globulin 4.1 g/dL (2.4-3.5) H 11/10/16 00:34 Albumin/Globulin Ratio 0.9 (1.1-2.2) L 11/10/16 00:34 LDL Cholesterol, Calc 107 mg/dL (0-99) H 11/10/16 00:34 Vitamin B12 > 2000 pg/mL (213-816) H 11/11/16 12:17 Ur Specific [place] 1.009 (1.010-1.025) L 11/09/16 17:10 Urine Blood Small (Negative) H 11/09/16 17:10 Ur Leukocyte Esterase Moderate (Negative) H 11/09/16 17:10 Ur Squamous Epith Cells Many per lpf (None-Few) H 11/09/16 17:10 Ur Culture Indicated? YES (NO) A 11/09/16 17:10
[2016-11-11 14:19] LABS: Folate 15.7 ng/mL (7.0-31.4); Vitamin B12 > 2000 pg/mL (213-816)
--- NOTE | 2016-11-11 17:09 | Procedure Note ---
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 The L4-L5 was identified and marked based on the anatomical landmarks. The area was cleansed and draped in usual sterile fashion. 1% lidocaine was used anesthetize the surrounding skin area. A 20- gauge spinal needle was placed in the L4-L5 interspace. Clear cerebral spinal fluid was obtained. Three tubes were filled with 2 mL of CSF. These were sent for the usual tests, including 1 tube to be held for further analysis if needed. Dr. Placido Reynolds was present for the entire procedure. Anesthesia: local Surgeon: Adonay Holt (Under direct supervision of Dr. Placido Reynolds) Estimated blood loss (cc): 0 Pathology: other Condition: stable Disposition: no change
[2016-11-11 17:55] LABS: Red Blood Cell,CSF < 0.002 M/mcL
[2016-11-11 17:57] LABS: Appearance,CSF Clear (Clear)
[2016-11-11 18:15] LABS: Glucose,CSF 60 mg/dL (40-70); Total Protein,CSF 26 mg/dL (15-45)
[2016-11-11] MEDS: Acyclovir 750 MG in D5% in Water 250 ML IVPB SCH ×2 (20:39→23:48)
[2016-11-12] MEDS ORDERED: Acyclovir 750 MG in D5% in Water 250 ML IVPB SCH
[2016-11-12] MEDS: *HR* Heparin 5,000 UNIT/ML VIAL SQ SCH ×2 (04:41→17:37)
[2016-11-12] MEDS: Famotidine 20 MG/2 ML VIAL IVP SCH ×2 (04:41→17:37)
--- NOTE | 2016-11-12 07:16 | EEG/EMG/Oth Biometrics Report ---
EEG Procedure Report Date of procedure: 11/12/16 EEG Procedure: Routine EEG Procedure Note: This report of a 21 channel bipolar and referential montage EEG. From the outset there was clearly identified attenuation of brain wave activity of the left cerebral hemisphere. The posterior dominant rhythm of 8 Hz is identified in the right occipital head regions. Low voltage mixed delta and theta frequencies prevail in the left cerebral cortex. Hyperventilation is not performed during the recording. Periods of drowsiness and stage II sleep identified as referenced by dropout of the posterior dominant rhythm and emergence of vertex activity K complexes and sleep spindles. Sleep activity is identified symmetrically in both cerebral hemispheres. Photic stimulation is performed and does not produce a driving response. The EKG reveals normal sinus rhythm at 70 beats per minute. Impressions: This EEG recording is abnormal and reveals suppressed and attenuated activity of the left cerebral hemisphere. There is no evidence of epileptiform activity identified during the recording. Comment: Etiologies of this interpretation might include vascular, neoplastic, infectious, inflammatory/autoimmune, or postictal. Please correlate clinically. The documentation in the history of HPI and plan were at least partially created by [employer] voice recognition technology by Dr. Reynolds. Errors in grammar, wording or other phrases may exist. If errors are found after the documentation signed, they will be addressed individually in the addendum section of this document when appropriate.
--- NOTE | 2016-11-12 07:32 | Neurology Progress Note ---
Date of Encounter: 11/11/16 Time of Encounter: 07:30 Assessment and Plan (1) Acquired aphasia Current Visit: Yes Status: Acute Very perplexing case. Patient has fairly sudden onset of an acute expressive as well as receptive aphasia. There is no evidence of left hemispheric abnormality according to the EEG and clinical presentation. However have not been able to identify any acute process up until now. Lumbar puncture last night was normal. At this juncture we can stop the acyclovir. I would recommend obtaining another MRI scan of the brain with and without contrast. The initial study was not completed with contrast. If the contrasted study does not reveal a left hemispheric abnormality that I would recommend transferring her to a tertiary care facility for further workup and assessment. Perhaps 24 hour EEG monitoring should be considered. Subjective Interval history: The chart was reviewed, patient was seen and examined. She is still awake alert however but very confused. She still has expressive as well as receptive aphasia. However her speech is fluent, she moves all 4 extremities. She follows some simple commands gets confused with others. She definitely has a processing problem that localizes to the left cerebral hemisphere. EEG was interpreted this morning and reveals suppressed cortical activity on the left. I did not see evidence of epileptiform activity however. MRI scan of the brain does reveal diffuse white matter changes however does not reveal evidence of a neoplastic process or acute infarct. Lumbar puncture was normal. Very perplexing case here. Objective - Constitutional Vitals: Temp Pulse Resp BP Pulse Ox 97.8 F 67 14 143/74 97 11/12/16 06:40 11/12/16 06:40 11/12/16 06:40 11/12/16 06:40 11/12/16 06:40 - Neurological Exam Sensorimotor examination: Present: intact Reflex and gait examination: intact Mental Status Examination: Present: makes eye contact, localizes noxious stimulation, expressive aphasia, receptive aphasia, motor apraxia, not reliable historian Cranial nerve examination: Present: PERRL, EOMI, visual rizvi intact, sensory to face intact, mastication intact, no facial asymmetry is present, no dysarthria, hearing is intact symmetrically, soft palate elevates bilaterally upon phonation, gag reflex intact, flexes SCM and trapezius muscles symmetrically with full power, tongue protrudes midline, no atrophy or facial fasiculations present Cerebellar examination: Present: no dysmetria, performs finger to nose and heel to hamm symmetrically without ataxia, no gait ataxia, no truncal ataxia, no difficulty with rapid alternating movements Additional comments: Neurologic examination is much the same as it was yesterday. She is awake and alert, however has jargon speech. Otherwise she is not drowsy or encephalopathic. She follows some commands however has difficulty with others. No cranial nerve deficits are identified. She moves the upper and lower extremities freely. No reflex asymmetries are present. No involuntary movements are identified. Results - Laboratory Findings CBC and BMP: 11/10/16 00:34 11/10/16 00:34 Abnormal lab findings: Abnormal lab results ESR 35 mm/hr (0-15) H 11/09/16 18:46 Glucose 111 mg/dL (70-99) H 11/10/16 00:34 POC Glucose 93 (58-89) H 11/10/16 17:29 Globulin 4.1 g/dL (2.4-3.5) H 11/10/16 00:34 Albumin/Globulin Ratio 0.9 (1.1-2.2) L 11/10/16 00:34 LDL Cholesterol, Calc 107 mg/dL (0-99) H 11/10/16 00:34 Vitamin B12 > 2000 pg/mL (213-816) H 11/11/16 12:17 Ur Specific [place] 1.009 (1.010-1.025) L 11/09/16 17:10 Urine Blood Small (Negative) H 11/09/16 17:10 Ur Leukocyte Esterase Moderate (Negative) H 11/09/16 17:10 Ur Squamous Epith Cells Many per lpf (None-Few) H 11/09/16 17:10 Ur Culture Indicated? YES (NO) A 11/09/16 17:10 Consult Discharge Plan - Plan Referrals: Thad Jimenez MD [Primary Care Provider] -
[2016-11-12 07:59] LABS: BUN/Creatinine Ratio 19 (6-26); Blood Urea Nitrogen 14 mg/dL (7-20); Carbon Dioxide 21 mEq/L (19-29); Chloride 111 mEq/L (98-109); Glucose 100 mg/dL (70-99); Osmolality,Calculated 293 (280-300); Potassium 3.4 mEq/L (3.5-4.5); Sodium 141 mEq/L (136-145); eGFR For African Americans > 60 (> 60); eGFR For Non-African Americans > 60 (> 60)
[2016-11-12 08:09] LABS: Basophils # 0.1 K/mcL (0.0-0.2); Basophils % 0.8 %; Eosinophils # 0.1 K/mcL (0.0-0.6); Eosinophils % 1.5 %; Hematocrit 33.3 % (35.3-44.9); Immature Granulocytes % 0.3 % (0-4); Lymphocytes # 1.4 K/mcL (0.6-4.6); Mean Corpuscular HGB Conc 33.9 g/dL (31.6-35.5); Mean Corpuscular Hemoglobin 32.2 pg (28.0-33.3); Mean Corpuscular Volume 94.9 fL (83.0-100.0); Mean Platelet Volume 9.6 fL (9.4-12.4); Monocytes # 0.9 K/mcL (0.0-1.3); Monocytes % 12.5 %; Neutrophils # 4.9 K/mcL (1.6-8.9); Platelet Count 262 K/mcL (140-400); Red Blood Count 3.51 M/mcL (3.82-4.97); Red Cell Distribution Width 12.2 % (11.5-14.5); Segmented Neutrophils % 65.9 %
[2016-11-12 08:10] LABS: Hemoglobin 11.3 g/dL (11.5-15.4)
--- NOTE | 2016-11-12 08:10 | ECHO - Doppler Report ---
Echocardiogram Name: Yaz Rojas Date of Study: 11/11/2016 Date: 1940 Ht: 62.0 in Medical Record#: [id number] Age: 76 Wt: 127.0 lb Gender: Female BSA: 1.58 Order #: [id number] Location: [facility] Room #: [id number] Reading Physician: Placido Palacios MD, [facility] Storm Sash Maker: Leigh Núñez RDCS Ordering Physician: Adonay Holt DO Primary Physician: Thad Jimenez MD Indications: Confusion Impressions: Normal LV systolic function, LVEF 55-60%. Mild left ventricular diastolic dysfunction. Normal right ventricular size and function. No significant valvular dysfunction. No evidence of pulmonary hypertension. Left Ventricular Wall Motion: Rest Echo Findings All wall segments showed normal motion. Findings: Study Quality * Suboptimal echo windows. ECG Findings * Normal sinus rhythm. Left Ventricle * Normal LV systolic function, LVEF 55-60%. * Normal LV chamber size and wall thickness. * Mild left ventricular diastolic dysfunction. Right Ventricle * Normal right ventricular size and function. Left Atrium * Normal left atrial size. Right Atrium * Normal right atrial size. Aorta * Normally sized aortic root. Pericardium * There is no pericardial effusion present. IVC * The IVC is not well evaluated. Aortic Valve * Trileaflet aortic valve. * Mildly sclerotic aortic valve leaflets. * No aortic stenosis. * Trace aortic regurgitation. Mitral Valve * Mild mitral annular calcification * No mitral stenosis. * Trace mitral regurgitation. Tricuspid Valve * Normal tricuspid valve structure. * No tricuspid stenosis. * Trace tricuspid regurgitation. * No evidence of pulmonary hypertension. Pulmonic Valve * Pulmonic valve not well visualized. * No pulmonic stenosis. * Trace pulmonic regurgitation. Measurements: BP: 143/ 78 2D Normal Values RVIDd: 2.43 cm IVSd: .87 cm 0.6 - 1.0 cm LVIDd: 4.46 cm 3.7 - 5.6 cm LVPWd: .77 cm 0.6 - 1.1 cm LVIDs: 2.39 cm 1.5 - 3.6 cm AO: 2.90 cm < 4.0 cm %FS: 46.40 cm >25 % LA volume: 35 Mitral Valve Peak E:.64 m/sec Peak A:.82 m/sec E/A Ratio:0.8 Peak E' Lat Edilberto:8.59 cm/s Peak E' Med Edilberto:6.09 cm/s E/E' Lat Ratio:7.5 E/E' Med Ratio:10.5 Tricuspid Valve TV Regurg Peak Grad: 23.00mmHg TV Regurg Peak Edilberto: 2.40m/sec Updated by lPacido Palacios MD, [facility] on 11/12/2016 8:04:02 AM electronically signed on 11/12/2016 8:04:29 AM with status of Final Wall Motion Barrera: 1=Normal, 2=Hypokinesis, 3=Akinesis, 4=Dyskinesis, 5=Aneurysmal, 6=Hyperkinetic, X=Not Visualized (Blank)=Missing
[2016-11-12] MEDS: Aspirin 81 MG TAB.CHEW PO SCH (08:13)
[2016-11-12] MEDS: Acyclovir 750 MG in D5% in Water 250 ML IVPB SCH (08:13)
--- NOTE | 2016-11-12 08:23 | Internal Med Progress Note ---
Date of Encounter: 11/11/16 Time of Encounter: 08:19 - Assessment and plan (1) Acquired aphasia Current Visit: Yes Status: Acute Assessment and plan: Patient presented with frontal headache and slurred speech/difficulty finding words. Patient and son report no history of seizures or previous stroke. Denies any other medical history besides acid reflux. Son reports one episode last year where patient had similar symptoms that lasted for less than two hours. When she followed up with PCP in [place] she was told it was a possible TIA but there was no evidence of stroke. Patient was admitted for new onset DUBOIS, slurred speech, confusion. 11/11: Today patient remains somewhat confused and continues to have difficulty responding at times with expressive dysphasia. She appears to understand most of what I am saying to her, but her responses are garbled. She has difficulty following commands during strength testing, however when she finally understands what to do she doesn't have any weakness noted. CN2-12 are intact. Reflexes are 2/4 b/l. Sensation to light touch is intact b/l. 11/12: Today patient seems less confused and is finding words better than yesterday. She continues to have some garbled speech. She is following commands better than yesterday when doing strength testing. Strength, sensation, CN2-12, reflexes all normal. LP from yesterday does not indicate HSV encephalitis, will d/c acyclovir today. -Started ASA/Lipitor 80mg/day -Head CT: chronic small vessel ischemic disease; no acute abnormality -Head CTA: Diminished enhancement of the posterior circulation and right MCA is of uncertain etiology and significance and could be related to contrast bolus timing and/or artifact. -Head MRA: Apparent focal short-segment occlusions of the P3 segments of both electronic health records specialist, probably related to artifact. Otherwise, no flow limiting stenosis or branch occlusion identified. -Brain MRI: No acute infarct -Neck MRA: No flow limiting stenosis or branch occlusion identified within the neck -ECHO: normal lv systolic function, EF 55-60%, mild LV diastolic dysfunction, no falvular dysfunction, no evidence of pulmonary hypertension -B12/folate, lactic acid, RPR, ammonia levels normal -EEG: abnormal/reveals suppressed and attenuated activity of the left cerebral hemisphere. No evidence of epileptiform activity. -MRI brain with contrast pending -HSV IGG pending -Neurology is following (2) UTI (urinary tract infection) Current Visit: Yes Status: Acute Assessment and plan: Patient with UA showing small amount of blood, moderate leukocyte esterase. Culture growing E. Faecalis. Patient with temp 100.4 11/10, afebrile today. Denies dysuria, blood in urine, changes in frequency. No suprapubic tenderness. Patient appears to be asymptomatic. However will treat since its is possible this is contributing to patients confusion. - Day 3 abx; Will switch patient from ceftriaxone to levofloxacin due to culture /sensitivity Qualifiers: Urinary tract infection type: site unspecified Hematuria presence: without hematuria Qualified Code(s): N39.0 - Urinary tract infection, site not specified (3) Hypokalemia Current Visit: Yes Status: Acute Assessment and plan: Patient with K 3.4 today. Possibly due to poor oral intake/decreased appetite for the past couple of days.Will continue to monitor and replace as needed. (4) Acid reflux Current Visit: Yes Status: Acute Assessment and plan: Patient with a history of acid reflux. Have continued home medication. Reports no burning/reflux at this time. Qualifiers: Esophagitis presence: esophagitis presence not specified Qualified Code(s) : K21.9 - Gastro-esophageal reflux disease without esophagitis (5) DVT prophylaxis Current Visit: Yes Status: Acute Assessment and plan: Pauda score of 4 (reduced mobility/age). Continue DVT prophylaxis with 5,000 SQ Heparin BID. - Subjective Interval history: I have seen and examined the patient this morning. Patient seems less confused and is not speaking with garbled words as she was yesterday. Reports she still has a DUBOIS and is having trouble with finding her words. She cannot describe it other than it is all over. She denies numbness, weakness, tingling. She denies having any dysuria, frequency, blood. Denies chills, sob, cp, abdominal pain, n/ v, diarrhea, constipation or any other symptoms at this time. - Constitutional Vitals: Temp Pulse Resp BP Pulse Ox 97.8 F 67 14 143/74 97 11/12/16 06:40 11/12/16 06:40 11/12/16 06:40 11/12/16 06:40 11/12/16 06:40 General appearance: Present: cooperative, A&O X 3, no acute distress - Head Head exam: Present: atraumatic, normocephalic - Eye Eye exam: Present: PERRL, conjuntiva pink, sclera anicteric Pupils: Present: PERRL - Neck Neck exam general surgery: Present: supple, trachea midline. Absent: lymphadenopathy - Respiratory Respiratory exam: Present: CTAB. Absent: accessory muscle use, rales, rhonchi, wheezes - Cardiovascular Cardiovascular exam: Present: RRR, +S1, +S2. Absent: diastolic murmur, gallop, rubs, systolic murmur - GI/Abdominal GI/Abdominal exam: Present: normal bowel sounds, soft, no peritoneal signs. Absent: distended, tenderness - Extremities Exam Extremities exam: Present: warm, radial pulses palpable and symetrical. Absent : calf tenderness, cyanotic, pedal edema - Neurological Exam Additional comments: -Speech: still has expressive aphasia. seems improved from yesterday. -CN: 2-12 intact -Motor: 5/5 Bilateral UE/LE -Patient is following commands much better than yesterday. She completed all strength testing without difficulty and on first prompting. Improved from yesterday. -Reflexes: 2/4 b/l UE/LE - Skin Skin exam: Present: dry, intact Internal Medicine: Result - Labs CBC & Chem 7: 11/12/16 07:41 11/12/16 07:41 Labs: Short CBC 11/12/16 Range/Units 07:41 WBC 7.4 (4.3-11.1) K/mcL Hgb 11.3 L D (11.5-15.4) g/dL Hct 33.3 L (35.3-44.9) % Plt Count 262 (140-400) K/mcL Neutrophils # 4.9 (1.6-8.9) K/mcL BMP 11/12/16 07:41 Sodium 141 Potassium 3.4 L Chloride 111 H Carbon Dioxide 21 BUN 14 Creatinine 0.74 Glucose 100 H Calcium 9.0 - ABG Interpretation ABG results: PT/INR, D-dimer PT 12.1 Seconds (9.4-12.1) 11/10/16 00:34 - Impressions Consult Discharge Plan - Plan Referrals: Thad Jimenez MD [Primary Care Provider] -
[2016-11-12] MEDS: Acetaminophen 325 MG TABLET PO PRN ×2 (12:47→19:15)
--- NOTE | 2016-11-12 14:29 | Discharge Summary ---
<Adonay Holt - Last Filed: 11/12/16 17:37> Date of Encounter: 11/11/16 Time of Encounter: 13:00 - Discharge Diagnosis (1) CVA (cerebral vascular accident) Priority: Primary Status: Acute Qualifiers: CVA mechanism: unspecified Qualified Code(s): I63.9 - Cerebral infarction, unspecified (2) Acquired aphasia Priority: Secondary Status: Acute (3) UTI (urinary tract infection) Priority: Secondary Status: Acute Qualifiers: Urinary tract infection type: site unspecified Hematuria presence: without hematuria Qualified Code(s): N39.0 - Urinary tract infection, site not specified (4) Hypokalemia Priority: Secondary Status: Acute (5) Acid reflux Priority: Secondary Status: Acute Qualifiers: Esophagitis presence: esophagitis presence not specified Qualified Code(s) : K21.9 - Gastro-esophageal reflux disease without esophagitis - Discharge Medications Home Medications: Calcium Carbonate/Vitamin D3 [Calcium 500-Vit D3 200 Tablet] 1 each PO DAILY [History] Cholecalciferol (D-3) [Vitamin D] 1,000 unit PO DAILY 11/09/16 [History] Cyanocobalamin (Vitamin B-12) [Vitamin B-12] 250 mcg PO DAILY 11/09/16 [History] LORazepam [Ativan] 1 mg PO HS PRN 11/09/16 [History] Acetaminophen [Tylenol] 650 mg PO Q6HR PRN #0 tablet 11/12/16 [Rx] Aspirin 81 mg PO DAILY tab.chew 11/12/16 [Rx] Atorvastatin [Lipitor] 80 mg PO HS tablet 11/12/16 [Rx] Famotidine [Pepcid] 10 mg IVP Q12HR vial 11/12/16 [Rx] Heparin 5,000 unit SQ Q12HCO vial 11/12/16 [Rx] Naloxone [Narcan] 0.4 mg IVP Q2MIN PRN #0 inj 11/12/16 [Rx] Allergies/Adverse Reactions: Allergies No Known Allergies Allergy (Verified 11/09/16 16:58) Procedures/tests Complete & Pending: Procedures Performed prior 72 hours Category Date Time Status MR head wo/w con [MR] Stat MRI 11/12/16 07:38 Draft Date of admission: 11/11/16 17:52 Primary care physician: Thad Jimenez MD Consults: [facility] Discharging clinician: Adonay Holt Anticipated date of discharge: 11/12/16 - Patient Status Disposition: Transfer Critical Access Hosp Condition: Good Functional capacity at discharge: independent ambulation Overall status at discharge: patient is progressing back to baseline - Discharge Instructions Follow Up With: Thad Jimenez MD [Primary Care Provider] - - Diet and Activity Activity: as per physical therapy Diet: regular diet Hospital course: Ms. Rojas is a 76 year old female with PMH of breast cancer s/p radiation therapy, GERD, diverticulosis who presented with headache, slurred speech and confusion starting at 7 am on 11/09. CT head in ED found chronic small vessel ischemic disease but no acute intracranial abnormality. Patient was admitted on same day for further monitoring and work-up. Patient was started on ASA & Lipitor. Head CTA showed diminished enhancement of the posterior circulation and right MCA is of uncertain etiology and significance and could be related to contrast bolus timing and/or artifact. Head MRA showed apparent focal short- segment occlusions of the P3 segments of both machine zipper trimmer, probably related to artifact , but otherwise no flow limiting stenosis or branch occlusion identified. Radiology report of brain MRI states no acute infarct. Neck MRA showed no flow limiting stenosis or branch occlusion identified within the neck. Echo showed LVEF 55-60% with mild LV diastolic dysfunction without significant valvular dysfunction. Patient's mental status improves without any significant neurological deficits except slowly improving expressive aphasia. Neurology was consulted and lumbar puncture was performed on 11/11 before starting on IV acyclovir. The CSF appears to be clear & colorless with < 0.002 RBC, < 3 total nucleated cells, glucose 60 and total protein 26. EEG reveals suppressed and attenuated activity of the left cerebral hemisphere. MRI with and without contrast was obtained on 11/12 and it showed small and acute left medial occipital lobe infarct. Case was discussed with neurology and transfer to tertiary care facility for advanced work-up and intervention such as complete cerebrovascular angiogram and possible angioplasty. The situation was discussed with patient and her family and they opted to be transferred to [facility]. Case was discussed with nurse at [facility] and patient will be transferred to [facility]. - Time Spent with Patient Total time spent providing and/or coordinating discharge services: Greater than 30 minutes - Constitutional Vitals: Temp Pulse Resp BP Pulse Ox 98.1 F 70 16 141/75 96 11/12/16 12:52 11/12/16 12:52 11/12/16 12:52 11/12/16 12:52 11/12/16 12:52 General appearance: Present: cooperative, A&O X 3, no acute distress - Head Head exam: Present: atraumatic, normocephalic - Eye Eye exam: Present: PERRL, conjuntiva pink, sclera anicteric - Neck Neck exam general surgery: Present: supple, trachea midline. Absent: lymphadenopathy - Respiratory Respiratory exam: Present: CTAB. Absent: accessory muscle use, rales, rhonchi, wheezes - Cardiovascular Cardiovascular exam: Present: RRR, +S1, +S2. Absent: diastolic murmur, gallop, rubs, systolic murmur - GI/Abdominal GI/Abdominal exam: Present: normal bowel sounds, soft, no peritoneal signs. Absent: distended, tenderness - Extremities Exam Extremities exam: Present: warm, radial pulses palpable and symetrical. Absent : calf tenderness, cyanotic, pedal edema - Neurological Exam Additional comments: -Speech: still has expressive aphasia. seems improved from yesterday. -CN: 2-12 intact -Motor: 5/5 Bilateral UE/LE -Patient is following commands much better than yesterday. She completed all strength testing without difficulty and on first prompting. Improved from yesterday. -Reflexes: 2/4 b/l UE/LE - Skin Skin exam: Present: dry, intact <Lizy,Rory P - Last Filed: 11/12/16 17:46> Date of Encounter: 11/11/16 - Discharge Diagnosis (1) Symptoms of cerebrovascular accident (CVA) Status: Acute (2) Slurred speech Status: Acute Procedures/tests Complete & Pending: Procedures Performed prior 72 hours Category Date Time Status MR head wo/w con [MR] Stat MRI 11/12/16 07:38 Draft Date of admission: 11/11/16 17:52 Primary care physician: Thad Jimenez MD Hospital course: Ms. Rojas is a 76 year old female - Time Spent with Patient Total time spent providing and/or coordinating discharge services: - Constitutional Vitals: Temp Pulse Resp BP Pulse Ox 97.9 F 71 16 128/63 95 11/12/16 15:37 11/12/16 15:37 11/12/16 15:37 11/12/16 15:37 11/12/16 15:37 - Attending Attestation I examined this patient and my medical decision-making was reviewed with the SEISMOMETER OPERATOR/PA/Advanced Practice Nurse/Resident Physician. I agree with the documented findings, disposition and treatment plan as described except to the extent set forth below.
[2016-11-12 19:19] VITALS: BP 144/74
== END 2016-11-12 20:05 | disposition critical access hospital (66) | DRG 64 ==
LOC: 2NENU 16:46 → EMEROO 16:46 → 2NENU 21:49 → SUATTDRO 23:22 → 2NENU 11-10 20:34
PROVIDERS: ADMIT Internal Medicine; ATTEND Internal Medicine

== ENCOUNTER 2017-06-20 05:44 | Observation (INO) ==
[2017-06-20] MEDS ORDERED: 0.9 % Sodium Chloride 1,000 ML IVC ONE (06:01)
--- NOTE | 2017-06-20 06:15 | Emergency Department Note ---
Disposition Clinical Impression: Left hip pain, Near syncope Disposition: Still a Patient Condition: Good Referrals: Thad Jimenez MD [Primary Care Provider] - Forms: ED Satisfaction Letter Fall HPI - General Chief Complaint: ED Fall Stated Complaint: left hip pain from fall yesterday syncope Time Seen by Provider: 06/20/17 05:50 Source: patient Mode of arrival: private vehicle Limitations: no limitations Nursing Notes Reviewed: Yes Vital Signs Reviewed: Yes - History of Present Illness HPI Narrative: 68-year-old female history of atrial fibrillation who presents to the ER due to near syncope and fall. Patient states yesterday she was walking and even though she was holding onto her handrail that she slipped and fell onto her left side. States she struck her left hip. She has been ambulatory since. States that this morning when she got up to go to the kitchen that she felt like she was on to pass out but did not. She sat on the floor then helped resolve back up with the cabinets and walk to her room. States that she was laid down and felt like she was going to pass out again. She did not have a syncopal episode. Patient currently complains of left-sided hip pain. States that she did take a Vicodin prior to arrival. She has no headache, chest pain, shortness of breath, numbness, tingling. No other complaints. Pt Subjective Complaint: fall Onset (ago): day(s) Fall From: standing Place Fall Occurred: home Loss of Consciousness: none Prolonged Down Time?: no Symptoms Prior to Fall: none Context: tripped/slipped Location of injury - extremities: Left: hip Associated symptoms (after fall): Denies: headache, numbness, weakness, chest pain, shortness of breath - Related Data Home Medications Medication Instructions Recorded Confirmed Clopidogrel [Plavix] 75 mg PO DAILY 11/23/16 11/23/16 MiraLAX Powder Bulk 17.9 Oz 17 g PO DAILY 11/23/16 11/23/16 Atorvastatin [Lipitor] 80 mg PO HS 12/09/16 12/09/16 Calcium Carbonate [Calcium] 1,000 mg PO DAILY 12/09/16 12/09/16 Cyanocobalamin (Vitamin B-12) 250 mcg PO DAILY 12/09/16 12/09/16 [Vitamin B-12] Famotidine [Pepcid] 20 mg PO BID 12/09/16 12/09/16 LORazepam [Ativan] 1 mg PO HS 12/09/16 12/09/16 Previous Rx's Medication Instructions Recorded Acetaminophen [Tylenol] 650 mg PO Q6HR PRN #0 tablet 11/12/16 Allergies Allergy/AdvReac Type Severity Reaction Status Date / Time No Known Allergies Allergy Verified 11/09/16 16:58 All systems ED: reviewed and negative except as stated. Constitutional: Denies: fever Cardiovascular: Denies: chest pain Respiratory: Denies: dyspnea Gastrointestinal: Denies: abdominal pain, nausea, vomiting Neurological: Denies: headache, numbness, paresthesias Fall PMH - Past Medical History Medical history: Reports: atrial fibrillation, cancer, hyperlipidemia Surgical history: Reports: breast surgery Psychiatric history: Reports: no psych history - Social History Smoking Status: Former smoker Alcohol use: Reports: occasionally Drug use: Reports: none Physical Exam - General Limitations: no limitations General appearance: alert, in no apparent distress - Head Head exam: atraumatic, normocephalic, normal inspection - Eye Eye exam: Present: normal appearance, PERRL, EOMI - ENT ENT exam: normal exam - Neck Neck exam: Present: normal inspection, full ROM - Chest Chest inspection: Present: normal inspection, symmetric chest wall rise - Respiratory Respiratory exam: Present: normal lung sounds bilaterally - Cardiovascular Cardiovascular exam: Present: regular rate, normal rhythm, normal heart sounds - Abdominal Exam Abdominal exam: Present: soft, Non-Tender. Absent: tenderness - Extremities Exam Extremities exam: Present: normal inspection, full ROM - Expanded Upper Extremity Exam Shoulder exam: Present: normal inspection, full ROM Arm exam: Present: normal inspection, full ROM Elbow exam: Present: normal inspection, full ROM Forearm/Wrist exam: Present: normal inspection, full ROM Hand exam: Present: normal inspection, full ROM Vascular exam: Normal: radial pulse - Expanded Lower Extremity Exam Hip/Pelvis exam: Present: normal inspection, full ROM. Absent: tenderness Upper leg exam: Present: normal inspection, full ROM Knee exam: Present: normal inspection, full ROM Lower leg exam: Present: normal inspection, full ROM Ankle exam: Present: normal inspection, full ROM Foot/toe exam: Present: normal inspection, full ROM Neurovascular/Tendon exam: Absent: motor deficit, sensory deficit - Back Exam Back exam: Present: normal inspection. Absent: tenderness - Neurological Exam Neurological exam: Present: alert, CN II-XII intact. Absent: motor sensory deficit - Expanded Neurological Exam Speech: Present: fluid speech Cranial nerves: EOM function (II, III, IV, ): Normal, facial sensation (V): Normal, spinal accessory function (XI): Normal, tongue deviation (XII): Normal Cerebellar function: finger to nose: Normal, heel to hamm: Normal Motor strength - LUE: 5/5 Motor strength - RUE: 5/5 Motor strength - LLE: 5/5 Motor strength - RLE: 5/5 Sensory exam upper extremity: light touch: Normal Sensory exam lower extremity: light touch: Normal Coma Scale Eye Opening: Spontaneous Coma Scale Motor Response: Obeys Commands Coma Scale Verbal Response: Oriented Coma Scale Total: 15 - Psychiatric Psychiatric exam: Present: normal affect, normal mood - Skin Skin exam: Present: warm, dry, intact Course Course Narrative: Patient seen and examined. She has no left hip pain here. Her pain is more in her left SI. We will get an EKG, chest x-ray as well as labs including troponin for her near-syncope as well as a left hip series. Vital Signs Temperature 97.6 F 06/20/17 05:47 Pulse Rate 80 06/20/17 05:47 Respiratory Rate 16 06/20/17 05:47 Blood Pressure 98/63 06/20/17 05:47 O2 Sat by Pulse Oximetry 97 06/20/17 05:47 Temperature 97.6 F 06/20/17 05:47 Pulse Rate 80 06/20/17 05:47 Respiratory Rate 16 06/20/17 05:47 Blood Pressure 98/63 06/20/17 05:47 O2 Sat by Pulse Oximetry 97 06/20/17 05:47 Oxygen Delivery Oxygen Delivery Room Air Fall - [facility] Narrative Medical decision making narrative: 77-year-old female presents to the ER due to near syncope and left hip pain. She had a mechanical fall yesterday and 2 near syncopal episodes this morning. EKG, chest x-ray as well as labs and CT scan of her head are all pending at the time of signout. She is signed out to the dayshift team in stable condition pending imaging and final disposition. Attestation Statement - Attestation Attestation: I, Matias Blanco DO, examined this patient [id number] and my medical decision-making was reviewed with Dr. Clifford Sandra, Resident Physician. I agree with the documented findings, disposition and treatment plan as described except to the extent set forth below. Please see my progress notes for details. Well-appearing 77-year-old female presents to the emergency room for evaluation mechanical fall on her syncopal event this morning. Yesterday afternoon patient was going upstairs and felt slightly unsteady and fell sideways hitting her left hip on the ground. Patient has pain since then. She has a recent stroke along with some intermittent confusion and unsteady gait since the presentation of the stroke in September. Currently she is denying chest pain shortness of breath headache vision changes nausea vomiting or diarrhea. No other concerns or issues noted at this time. Patient has reproducible symptoms with palpation left hip. She is an Ana to the emergency room. She is alert and oriented sentences. Vital signs are reviewed and otherwise unremarkable. Patient describes her near-syncopal event as getting up from bed and walking in the kitchen she felt slightly unsteady and sat down on the floor. Did not lose consciousness. She remembers the entire event. She did not fall or hit her head. She got back up and had another episode of lightheadedness while she was lying in the bed. Denies any trauma and he denied any preceding or presenting symptoms at that time. Denied palpitations or chest pressure. Patient will screening evaluation completed with imaging of the pelvis EKG chest x-ray and laboratory workup including urinalysis. Patient be signed out to the daytime physician Dr. Storey for completion of the course of care and possible admission. See detailed documentation of physical exam, medical intervention, medical decision-making and sign out any resident physician's note
[2017-06-20 07:03] LABS: Basophils % 0.2 %; Eosinophils % 0.2 %; Hematocrit 36.5 % (35.3-44.9); Hemoglobin 11.8 g/dL (11.5-15.4); Immature Granulocytes % 0.4 % (0-4); Lymphocytes # 0.7 K/mcL (0.6-4.6); Mean Corpuscular HGB Conc 32.3 g/dL (31.6-35.5); Mean Corpuscular Hemoglobin 31.1 pg (28.0-33.3); Mean Corpuscular Volume 96.1 fL (83.0-100.0); Mean Platelet Volume 9.3 fL (9.4-12.4); Monocytes # 0.6 K/mcL (0.0-1.3); Monocytes % 6.8 %; Neutrophils # 6.8 K/mcL (1.6-8.9); Platelet Count 235 K/mcL (140-400); Red Cell Distribution Width 13.1 % (11.5-14.5); Segmented Neutrophils % 84.4 %
[2017-06-20 07:08] LABS: BUN/Creatinine Ratio 20 (6-26); Blood Urea Nitrogen 18 mg/dL (7-20); Calcium 9.6 mg/dL (8.6-10.8); Carbon Dioxide 27 mEq/L (19-29); Chloride 102 mEq/L (98-109); Glucose 111 mg/dL (70-99); Osmolality,Calculated 289 (280-300); Potassium 3.6 mEq/L (3.5-4.5); Sodium 138 mEq/L (136-145); eGFR For African Americans > 60 (> 60); eGFR For Non-African Americans > 60 (> 60)
--- NOTE | 2017-06-20 07:25 | Emergency Department Note ---
Disposition Clinical Impression: Left hip pain, Near syncope Disposition: Admitted As Inpatient Condition: Good Time of Disposition: 08:19 General Adult HPI - General Chief complaint: ED Fall Stated complaint: left hip pain from fall yesterday syncope Time Seen by Provider: 06/20/17 05:50 Source: patient Mode of arrival: private vehicle Limitations: no limitations Nursing Notes Reviewed: Yes Vital Signs Reviewed: Yes - History of Present Illness HPI Narrative: Patient is a 77-year-old female with past medical history of atrial fibrillation on plavix, hyperlipidemia, breast cancer presents with complaints of near syncopal episodes and left hip pain status post fall. Patient states that everything began yesterday afternoon when she is walking up or 2 steps reports and she lost her balance and fell backwards onto her left buttock now she has posterior pain on the left side over her head. At the time of the fall the patient was able to get back up so denies any head or neck injury and no loss of consciousness she walked back into her house and she will monitor groceries. Beta that evening she was having left-sided buttock pain so she took a Vicodin. Later that night she states that she is getting out of bed at about 2 AM to have ice for her pain when she felt like she was going to pass out and she states that she crumpled to the floor however she did not fall she did not lose consciousness she got back up and she walked to her bed at that time she said that if her bed and she states she felt she did not pass out again so she laid down and then came to the emergency department. Throughout all these events the patient denies any numbness, tingling or weakness in her extremities, no chest pain and no shortness of breath. Pain Scale: 6 - Related Data Home Medications Medication Instructions Recorded Confirmed Calcium Carbonate [Calcium] 1,000 mg PO DAILY 12/09/16 06/20/17 Cyanocobalamin (Vitamin B-12) 250 mcg PO DAILY 12/09/16 06/20/17 [Vitamin B-12] LORazepam [Ativan] 1 mg PO HS 12/09/16 06/20/17 Atorvastatin [Lipitor] 10 mg PO HS 06/20/17 06/20/17 Levothyroxine [Synthroid] 25 mcg PO 0630 06/20/17 06/20/17 Metoprolol [Lopressor] 25 mg PO BID 06/20/17 06/20/17 Rivaroxaban [Xarelto] 20 mg PO DAILY 06/20/17 06/20/17 Allergies Allergy/AdvReac Type Severity Reaction Status Date / Time No Known Allergies Allergy Verified 11/09/16 16:58 Review of Systems: Constitutional: No fever, No chills Vision: No blurred vision ENT: No rhinorrhea Respiratory: No cough, no shortness of breath Allergic: No allergies : No blood in urine, no dysuria GI: No blood in stool, no dark tarry stool, no diarrhea Hematologic: No bruising Dermatologic: No skin rash, no abrasions Musculoskeletal: Pain to left buttock and over proximal hamstrings from fall. Neuro: No numbness of the extremities All systems ED: reviewed and negative except as stated. Constitutional: Denies: fever Cardiovascular: Denies: chest pain Respiratory: Denies: dyspnea Gastrointestinal: Denies: abdominal pain, nausea, vomiting Neurological: Denies: headache, numbness, paresthesias Past Medical History - Past Medical History Medical history: Reports: atrial fibrillation, cancer, hyperlipidemia Surgical history: Reports: breast surgery Psychiatric history: Reports: no psych history - Social History Smoking Status: Former smoker Smokeless Tobacco Status: No Alcohol use: Reports: occasionally Drug use: Reports: none Physical Exam CONSTITUTIONAL: Well-appearing; well-nourished; A&O X3, in no apparent distress , no evidence of shock HEAD: Normocephalic; atraumatic. No gómez sign, raccoon eyes or evidence of CSF drainage EYES: PERRL, EOMI, no scleral icterus EARS: No hemotympanum or TM rupture, no otorrhea NECK: No tracheal deviation, JVD, or hematoma. Palpation of the posterior cervical spine reveals no tenderness NOSE: The nose is normal in appearance without rhinorrhea, epistaxis, or septal hematoma. MOUTH: Normal with intact dentition CHEST: no chest tenderness with palpation RESP: Normal chest excursion with respiration, no paradoxical motion, subcutaneous emphysema. The breath sounds are clear and equal bilaterally CARD: Regular rhythm, without murmurs, rub or gallop ABD: No distention, ecchymosis, abrasions. Non-tender, soft, without rigidity , rebound or guarding PELVIS: No laxity or tenderness with palpation or compression EXT: Good ROM without tenderness, except her left hip patient has pain with external rotation. Patient also has tenderness on palpation of the posterior left proximal leg near the gluteal fold and over the left glute. No deformity. Pulses 2+ in 4 extremities SKIN: Normal for age and race; warm and dry; no apparent lesions, not pale or diaphoretic - General Limitations: no limitations General appearance: alert, in no apparent distress Course Course Narrative: patient patient is a 77-year-old female with a past medical history of A. fib, hyperlipidemia presents with a complaint of a fall yesterday which was followed by 2 episodes of near syncope. She is denying any fevers, chills, recent illness no chest pain, shortness of breath or abdominal pain no dark and tarry stools no dysuria. Plan is to work the patient up for near syncope. Patient will most likely be admitted to the hospital. - Reevaluation(s) Reevaluation #1: Patient's EKG showed a sinus rhythm. Her lab work came back unremarkable. Head CT and chest x-ray were also negative. I spoke with the hospitalist Dr. Joaquin he agrees to accept the patient. Time: 08:19 Vital Signs Temperature 97.6 F 06/20/17 05:47 Pulse Rate 80 06/20/17 05:47 Respiratory Rate 16 06/20/17 05:47 Blood Pressure 98/63 06/20/17 05:47 O2 Sat by Pulse Oximetry 97 06/20/17 05:47 Temperature 97.6 F 06/20/17 05:47 Pulse Rate 71 06/20/17 07:35 Respiratory Rate 16 06/20/17 08:38 Blood Pressure 123/85 06/20/17 08:38 O2 Sat by Pulse Oximetry 96 06/20/17 07:35 Oxygen Delivery Oxygen Delivery Room Air Medical Decision Making - Medical Records Medical records reviewed: Yes I reviewed the patient's medical records. - Lab Data Lab results reviewed: Yes I reviewed the patient's lab results. Result diagrams: 06/20/17 06:45 06/20/17 06:45 Lab Results 06/20/17 06/20/17 06/20/17 Range/Units 06:45 06:45 06:45 WBC 8.1 (4.3-11.1) K/mcL RBC 3.80 L (3.82-4.97) M/mcL Hgb 11.8 (11.5-15.4) g/dL Hct 36.5 (35.3-44.9) % MCV 96.1 (83.0-100.0) fL MCH 31.1 (28.0-33.3) pg MCHC 32.3 (31.6-35.5) g/dL RDW 13.1 (11.5-14.5) % Plt Count 235 (140-400) K/mcL MPV 9.3 L (9.4-12.4) fL Immature Gran % 0.4 (0-4) % Seg Neutrophils % 84.4 % Lymphocytes % 8.0 % Monocytes % 6.8 % Eosinophils % 0.2 % Basophils % 0.2 % Neutrophils # 6.8 (1.6-8.9) K/mcL Lymphocytes # 0.7 (0.6-4.6) K/mcL Monocytes # 0.6 (0.0-1.3) K/mcL Eosinophils # 0.0 (0.0-0.6) K/mcL Basophils # 0.0 (0.0-0.2) K/mcL Sodium 138 (136-145) mEq/L Potassium 3.6 (3.5-4.5) mEq/L Chloride 102 (98-109) mEq/L Carbon Dioxide 27 (19-29) mEq/L BUN 18 (7-20) mg/dL Creatinine 0.90 (0.57-1.11) mg/dL Est GFR ( Amer) > 60 (> 60) Est GFR (Non-Af Amer) > 60 (> 60) BUN/Creatinine Ratio 20 (6-26) Glucose 111 H (70-99) mg/dL Calculated Osmolality 289 (280-300) Calcium 9.6 (8.6-10.8) mg/dL Troponin I 0.01 (0-0.03) ng/mL - Radiology Data Radiology results reviewed: Yes I reviewed the patient's radiology results. Chest X-Ray 06/20/17 06:01 IMPRESSION: No active cardiopulmonary disease D/ / Elfego Murillo MD / Elfego Murillo MD Interpreting Provider: Elfego Murillo MD Hip X-Ray 06/20/17 06:05 IMPRESSION: No acute fracture, or dislocation of the left hip or visualized pelvis. D/ / Kelvin Alonso MD / Kelvin Alonso MD Interpreting Provider: Kelvin Alonso MD Head CT 06/20/17 06:44 IMPRESSION: No acute intracranial abnormality. 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 Additional small old infarctions in the right frontal and left parietal lobes, new since November 12, 2016. Mild parenchymal volume loss. Mild to moderate chronic microvascular disease. D/ / Kelvin Alonso MD / Kevlin Alonso MD Interpreting Provider: Kelvin Alonso MD - EKG Data EKG #1 EKG attestation: Yes I reviewed and interpreted this EKG. EKG results narrative: Patient's EKG was interpreted by me at 7:14. The EKG is sinus rhythm at a rate of 74. Normal axis. NC is 141, QRS is 92, QT is 369 and QTC is 396 these are within normal limits. The patient has good R-wave progression. No ST elevation or depression noted Q waves and I have no old EKG for comparison. No concerns for ischemia or infarction. Attestation Statement - Attestation Attestation: Patient was seen with resident physician. I reviewed the history, physical, assessment and plan, and agree with the findings. I also personally evaluated this patient and had [id number] time with this patient. 77-year-old female comes to the emergency department with 2 separate complaints. First is hip pain status post mechanical fall. Patient states she fell hurting her hip and buttocks on the left side. She has been able to ambulate on it but she there is associated pain. Patient also notes that she has had a near syncopal episode. She got up at 2 AM and attempt to get some ice for her painful but, and she almost passed out. She said she slid to the ground and it took some time for her to get back up. She did not fully lose consciousness. She has a history of A. fib and is currently taking Plavix. So the first time she fell she may have hit her head she does have some mild head pain. On examination vital signs are stable. ENT show no signs of trauma. Heart regular rhythm and rate. Lungs are clear. Abdomen is soft and nontender. Extremities patient is tender with palpation of the lower aspect of the buttocks on the left side. There is no gross deformity. There is good range of motion of the hip. Neurologically intact without focal deficits. 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 We basically started her exam over again labs were reviewed and were unremarkable. EKG did not show acute ischemic changes. Rate is controlled. We will wait on the report of the CT of the head in the x-rays of the hip. We will then admit the patient for near syncopal episode. She does probably require some further workup especially considering her cardiac history and her symptoms. I agree with the resident physician assessment plan.
--- NOTE | 2017-06-20 10:05 | Internal Med History&Physical ---
Date of Encounter: 06/20/17 Time of Encounter: 10:01 Assessment and Plan (1) Fall Current visit: Yes Status: Acute Maybe related to orthostasis. Initial blood pressure on arrival to the emergency room 90/60. Will check orthostatic vitals, hydrate the patient. Check urine analysis. There is no new focal neurological deficits. Repeat CT scan however shows new infarcts relative to the CAT scan performed in October 2016 , however these infarcts are old and not acute appearing. Withhold blood- pressure medications. Consult neurology given new infarcts CT scan which are likely embolic in nature given her afib history. Physical therapy and occupational therapy to see the patient. There is no evidence of fracture on hip x-ray. Qualifiers: Qualified Code(s): W19.XXXA - Unspecified fall, initial encounter (2) Atrial fibrillation Current visit: Yes Status: Acute Continue Xarelto Qualifiers: Qualified Code(s): I48.91 - Unspecified atrial fibrillation Internal Medicine - H&P: HPI Chief complaint: fall History of present illness: Ms. Rojas is a 77 year old female with multiple medical problems including recent CVA in 10/2016, paroxysmal atrial fibrillation on Xarelto, presents an emergency room today after a fall. Patients was getting into her house and holding onto the handrails to get up 2 steps and somehow patient slipped and fell down on her left hip. She was still able to get up and bear weight on the left lower extremity. Patients was attempting to get some ice to put on the left hip but she would feel lightheaded when she stand up. She has not lost consciousness completely. She still recalls all circumstances. She does not recognize any new focal weakness, tingling or numbness in any extremity, facial symmetry or speech sluriness. She denies any reason febrile illness. No coffee expectoration diarrhea urinary symptoms fever chills. She is on Xarelto , does not recognize any melena or hematochezia. Past Med Surg Social Fam HX - Past Medical History Medical history: atrial fibrillation, cancer, hyperlipidemia Psychiatric history: no psych history - Past Surgical History Surgical History: breast surgery - Social History Smoking Status: Former smoker Smokeless Tobacco Status: No Alcohol use: occasionally Drug use: none - Family History Mother Adopted: No Living Status: Hx Family Cardiac Disorders: Yes Internal Medicine - H&P: Meds Calcium Carbonate [Calcium] 1,000 mg PO DAILY 04/26/17 [History] Cyanocobalamin (Vitamin B-12) [Vitamin B-12] 250 mcg PO DAILY 12/09/16 [History] LORazepam [Ativan] 1 mg PO HS 12/09/16 [History] Atorvastatin [Lipitor] 10 mg PO HS 06/20/17 [History] Levothyroxine [Synthroid] 25 mcg PO 0630 06/20/17 [History] Metoprolol [Lopressor] 25 mg PO BID 06/20/17 [History] Rivaroxaban [Xarelto] 20 mg PO DAILY 06/20/17 [History] 3 Allergy/AdvReac Type Severity Reaction Status Date / Time No Known Allergies Allergy Verified 11/09/16 16:58 All Systems PM: A 10-system review of systems was performed and is negative for pertinent findings except as documented above in the HPI. Review of systems: 10 point reveal systems is negative except for HPI - Constitutional Vitals: Temp Pulse Resp BP Pulse Ox 97.9 F 73 14 135/72 95 06/20/17 09:19 06/20/17 09:19 06/20/17 09:19 06/20/17 09:19 06/20/17 09:19 Exam: .Gen.: patient is alert oriented times 3 cardiac: normal S1 S2 no additional sounds or murmurs chest: no active wheezing or bronchial breathing abdomen soft nontender nondistended normal bowel sounds lower extremity no swelling. Neuro: no new focal deficits Internal Med - H&P Results - Labs CBC & Chem 7: 06/20/17 06:45 06/20/17 06:45
[2017-06-20] MEDS: 0.9 % Sodium Chloride 1,000 ML IVC SCH (10:43)
--- NOTE | 2017-06-20 12:45 | Neurology - Consult Note ---
Date of Encounter: 06/20/17 Time of Encounter: 12:39 Assessment and Plan (1) Near syncope Current Visit: Yes Status: Acute I agree that the near-syncopal episodes that she experienced are likely due to orthostasis. Her blood pressure was 90/60 at the time of admission. The changes in the CAT scan of the brain were identified on this admission I believe a more than likely relative to cardioembolic infarcts that likely occurred during the visit back in October. My reasoning for this conclusion is that she has not experienced any new neurologic symptoms that are focal or lateralized sensory last admission in October. Unfortunately, there is probably not going to be much else to offer as she is already on Xarelto the atrial fibrillation, and she has intracranial large vessel stenoses as well. Recommend maintaining the Xarelto. No further neurologic testing is necessary at this time. History of Present Illness HPI: Ms. Rojas is a 77 year old female who is seen for neurologic consultation secondary to abnormal CT scan of the brain and episodes of presyncope. She does have a history of paroxysmal atrial fibrillation and was last hospitalized here back in October 2016. At that time she experienced an acute small left occipital lobe infarct which has resulted in right homonymous hemianopsia. The admission and today she states was due to feeling lightheaded and she did have a fall however she had complaints of pain of the left buttock region and the pain has been unremitting and she wanted to find out whether or not she actually broken her hip. She denies any new neurologic symptoms since October 2016 when she was last admitted. She denies any numbness tingling weakness of the arms or legs. Eyes any speech difficulty. Upon admission her blood pressure was 90/60. This is likely the etiology of the presyncopal episode. I did do a [id number] comparison review of the MRI which was completed back in October 2016 and the CAT scan completed with this admission. I believe that the most logical explanation is that the abnormalities that appear to be new on this recent CAT scan with unsteady likely occurred back in October 2016. They have nearly now evolved to the point where noticeable on neuroimaging. MRA scan of the brain was also completed back in October of this year which revealed stenotic lesions involving both P3 branches of the posterior cerebral arteries. She has not experienced any new neurologic symptoms. She is currently awake alert and oriented to person place and time follow commands and answers questions appropriately. Past Med Surg Social Fam HX - Past Medical History Medical history: atrial fibrillation, cancer, hyperlipidemia Psychiatric history: no psych history - Past Surgical History Surgical History: breast surgery - Social History Smoking Status: Former smoker Smokeless Tobacco Status: No Alcohol use: occasionally Drug use: none - Family History Mother Adopted: No Living Status: Hx Family Cardiac Disorders: Yes Medications and Allergies Calcium Carbonate [Calcium] 1,000 mg PO DAILY 12/09/16 [History] Cyanocobalamin (Vitamin B-12) [Vitamin B-12] 250 mcg PO DAILY 12/09/16 [History] LORazepam [Ativan] 1 mg PO HS 12/09/16 [History] Atorvastatin [Lipitor] 10 mg PO HS 06/20/17 [History] Levothyroxine [Synthroid] [place] [address]/20/17 [History] Metoprolol [Lopressor] 25 mg PO BID 06/20/17 [History] Rivaroxaban [Xarelto] 20 mg PO DAILY 06/20/17 [History] 3 Allergy/AdvReac Type Severity Reaction Status Date / Time No Known Allergies Allergy Verified 11/09/16 16:58 All Systems: A 10-system review of systems was performed and is negative for pertinent findings except as documented above in the HPI. Review of Systems: 10 point review of systems is consistent with a history of present illness and otherwise negative. 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, quadriceps, tibialis Anterior, toe extension (EHL), plantarflexion Reflexes: Biceps: 1+, Triceps: 1+, Brachioradialis: 1+, Patella: 0, Achilles: 0 Mental Status Examination: awake, alert, oriented to person, oriented to place, oriented to time, follows commands appropriately, answers questions appropriately, no agnosia, no aphasia, no aproxia Cranial nerve examination: PERRL, EOMI, visual rizvi intact, corneal reflexes brisk symmetrically, sensory to face intact, mastication intact, no facial asymmetry is present, no dysarthria, hearing is intact symmetrically, soft palate elevates bilaterally upon phonation, gag reflex intact, flexes SCM and trapezius muscles symmetrically with full power, tongue protrudes midline, no atrophy or facial fasiculations present Cerebellar examination: no dysmetria, performs finger to nose and heel to hamm symmetrically without ataxia, no gait ataxia, no truncal ataxia, no difficulty with rapid alternating movements Results - Laboratory Findings CBC and BMP: 06/20/17 06:45 06/20/17 06:45 Abnormal lab findings: Abnormal lab results RBC 3.80 M/mcL (3.82-4.97) L 06/20/17 06:45 MPV 9.3 fL (9.4-12.4) L 06/20/17 06:45 Glucose 111 mg/dL (70-99) H 06/20/17 06:45 Consult Discharge Plan - Plan Referrals: Thad Jimenez MD [Primary Care Provider] -
[2017-06-20 13:28] LABS: Bilirubin,Urine Negative (Negative); Blood,Urine Trace (Negative); Color,Urine Yellow (Yellow); Glucose,Urine (UA) Normal (Normal); Ketones,Urine Negative (Negative); Leukocyte Esterase,Urine Large (Negative); Nitrite,Urine Negative (Negative); PH,Urine 6.5 pH Units (5.0-8.0); Protein,Urine Negative (Neg-Trace); Specific Gravity,Urine 1.012 (1.010-1.025); Urobilinogen,Urine Normal (Normal)
[2017-06-20 13:31] LABS: Bacteria,Urine None Seen per hpf (None-Few); Hyaline Casts,Urine None Seen per lpf (None-Few); Squamous Epithelial Cell,Urine Many per lpf (None-Few); WBC,Urine 50-100 per hpf (0-3)
[2017-06-20] MEDS: Levothyroxine 25 MCG TABLET PO SCH (13:32)
[2017-06-20] MEDS: *HR* Rivaroxaban 15 MG TABLET PO SCH (13:32)
[2017-06-20 13:33] LABS: Clarity,Urine Slightly Hazy (Clear)
[2017-06-20] MEDS ORDERED: *HR* LORazepam 0.5 MG TABLET PO SCH (21:00)
[2017-06-21] MEDS: 0.9 % Sodium Chloride 1,000 ML IVC SCH (03:11)
[2017-06-21 04:03] LABS: Basophils % 0.3 %; Eosinophils # 0.1 K/mcL (0.0-0.6); Eosinophils % 2.3 %; Hematocrit 28.8 % (35.3-44.9); Immature Granulocytes % 0.3 % (0-4); Lymphocytes # 1.2 K/mcL (0.6-4.6); Mean Corpuscular HGB Conc 32.6 g/dL (31.6-35.5); Mean Corpuscular Hemoglobin 31.2 pg (28.0-33.3); Mean Corpuscular Volume 95.7 fL (83.0-100.0); Mean Platelet Volume 9.4 fL (9.4-12.4); Monocytes # 0.7 K/mcL (0.0-1.3); Monocytes % 11.8 %; Neutrophils # 3.7 K/mcL (1.6-8.9); Platelet Count 214 K/mcL (140-400); Red Blood Count 3.01 M/mcL (3.82-4.97); Red Cell Distribution Width 13.5 % (11.5-14.5); Segmented Neutrophils % 64.3 %
[2017-06-21 04:05] LABS: Hemoglobin 9.4 g/dL (11.5-15.4)
[2017-06-21 04:22] LABS: BUN/Creatinine Ratio 15 (6-26); Blood Urea Nitrogen 11 mg/dL (7-20); Calcium 8.4 mg/dL (8.6-10.8); Carbon Dioxide 23 mEq/L (19-29); Chloride 112 mEq/L (98-109); Glucose 103 mg/dL (70-99); Magnesium 1.7 mg/dL (1.6-2.6); Osmolality,Calculated 292 (280-300); Potassium 3.8 mEq/L (3.5-4.5); Sodium 141 mEq/L (136-145); eGFR For African Americans > 60 (> 60); eGFR For Non-African Americans > 60 (> 60)
[2017-06-21] MEDS: Levothyroxine 25 MCG TABLET PO SCH (06:02)
[2017-06-21] MEDS ORDERED: Levothyroxine 25 MCG TABLET PO SCH (06:30)
[2017-06-21] MEDS: *HR* Rivaroxaban 15 MG TABLET PO SCH (08:37)
[2017-06-21] MEDS ORDERED: *HR* Rivaroxaban 15 MG TABLET PO SCH (09:00)
[2017-06-21 10:50] VITALS: BP 95/68
--- NOTE | 2017-06-21 11:01 | Discharge Summary ---
Date of Encounter: 06/21/17 Time of Encounter: 10:57 - Discharge Diagnosis (1) Fall Priority: Primary Status: Acute Qualifiers: Encounter type: initial encounter Qualified Code(s): W19.XXXA - Unspecified fall, initial encounter (2) UTI (urinary tract infection) Priority: Primary Status: Acute Qualifiers: Urinary tract infection type: site unspecified Hematuria presence: without hematuria Qualified Code(s): N39.0 - Urinary tract infection, site not specified (3) CVA (cerebral vascular accident) Priority: Secondary Status: Chronic Qualifiers: CVA mechanism: unspecified Qualified Code(s): I63.9 - Cerebral infarction, unspecified (4) Anemia Priority: Secondary Status: Chronic Qualifiers: Anemia type: unspecified type Qualified Code(s): D64.9 - Anemia, unspecified (5) Atrial fibrillation Priority: Secondary Status: Chronic Qualifiers: Atrial fibrillation type: chronic Qualified Code(s): I48.2 - Chronic atrial fibrillation - Discharge Medications Prescriptions: levoFLOXacin [Levaquin] 500 mg PO DAILY #5 tablet Home Medications: Calcium Carbonate [Calcium] 1,000 mg PO DAILY 12/09/16 [History] Cyanocobalamin (Vitamin B-12) [Vitamin B-12] 250 mcg PO DAILY 12/09/16 [History] LORazepam [Ativan] 1 mg PO HS 12/09/16 [History] Atorvastatin [Lipitor] 10 mg PO HS 06/20/17 [History] Levothyroxine [Synthroid] 25 mcg PO 0630 06/20/17 [History] Metoprolol [Lopressor] 25 mg PO BID 06/20/17 [History] Rivaroxaban [Xarelto] 20 mg PO DAILY 06/20/17 [History] levoFLOXacin [Levaquin] 500 mg PO DAILY #5 tablet 06/21/17 [Rx] Allergies/Adverse Reactions: 3 Allergy/AdvReac Type Severity Reaction Status Date / Time No Known Allergies Allergy Verified 11/09/16 16:58 Date of admission: 06/20/17 08:27 Primary care physician: Thad Jimenez MD Consults: 06/20/17 09:52 Consult to Occupational Therapy [CONS] Routine Comment: Evaluate, develop and implement POC Reason for Consult: weakness Consult to Physical Therapy [CONS] Routine Comment: Evaluate, develop and implement POC Reason for Consult: weakness 06/20/17 10:15 Consult to Neurology [CONS] Routine Consulting Provider: Neurology [facility] Reason for Consult: remote embolic CVA Call Completed: No Discharging clinician: Dali Griffin Anticipated date of discharge: 06/21/17 - Patient Status Disposition: Home, Self-Care Condition: Good Functional capacity at discharge: uses cane/walker Overall status at discharge: patient is progressing back to baseline - Discharge Instructions Instructions: Levofloxacin (By mouth), Urinary Tract Infection in Women (DC), Urinary Tract Infection in Women (GEN), Syncope (DC), Fall Prevention for Older Adults (GEN), Fall Prevention (DC) Follow Up With: Thad Jimenez MD [Primary Care Provider] - 06/29/17 10:15 am - Diet and Activity Activity: resume usual activities as tolerated Hospital course: Ms. Rojas is a 77 year old female with h/o- CVA, A.fib, was admitted with mechanical fall at home. Initial labs, EKG showed no acute abnormality. CT head showed old infarcts, but new since previous CT scan. Neurology was consulted and recommend no further testing as the imaging findings are likely cardioembolic phenomena due to underlying atrial fibrillation; patient denies new focal neurological symptoms/signs at this time. Fall may be due to orthostatic hypotension. She improved with IV hydration. PT/OT evaluation was done and patient was deemed stable for discharge hoe with no PT needs. She was noted to be on Xarelto for anticoagulation which was continued. - Time Spent with Patient Total time spent providing and/or coordinating discharge services: Greater than 30 minutes (40 min) - Constitutional Vitals: Temp Pulse Resp BP Pulse Ox 97.9 F 82 16 95/68 100 06/21/17 10:49 06/21/17 10:49 06/21/17 10:49 06/21/17 10:49 06/21/17 10:49 General appearance: Present: A&O X 3, answers questions appropriately - Cardiovascular Cardiovascular exam: Present: irregular rhythm, +S1, +S2. Absent: diastolic murmur, gallop, rubs, systolic murmur
--- NOTE | 2017-06-22 21:37 | Electrocardiograph Report ---
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
[2017-06-23 17:53] LABS: CK-BB (CK isoenzymes) 0 % (0-0); CK-MB (CK isoenzymes) 0 % (0-4); CK-MM (CK-isoenzymes) 100 % (96-100)
[2017-06-23 17:53] LABS: CK-BB (CK isoenzymes) 0 % (0-0); CK-MB (CK isoenzymes) 0 % (0-4); CK-MM (CK-isoenzymes) 100 % (96-100)
[2017-06-24 07:14] LABS: CK Total (Ck Isoenzymes) 143 U/L (20-180)
[2017-06-24 07:14] LABS: CK Total (Ck Isoenzymes) 131 U/L (20-180)
== END 2017-06-21 12:55 | disposition home or self-care (01) ==
LOC: 3BNU 05:44 → EMEROO 05:44 → SUATTDRO 08:27 → 3BNU 09:14
PROVIDERS: ADMIT Hospitalist; ATTEND Internal Medicine

== ENCOUNTER 2021-09-12 10:08 | Inpatient (IN) ==
[2021-09-12] MEDS ORDERED: Isovue-370 500 ML BOTTLE IVP ONE (10:13)
[2021-09-12] MEDS ORDERED: 0.9 % Sodium Chloride 1,000 ML IV ONE (10:15)
[2021-09-12 10:55] LABS: Basophils % 0.2 %; Eosinophils # 0.6 K/mcL (0.0-0.6); Eosinophils % 4.7 %; Hematocrit 38.1 % (35.3-44.9); Hemoglobin 11.7 g/dL (11.5-15.4); Immature Granulocytes % 0.5 % (0-4); Lymphocytes # 0.8 K/mcL (0.6-4.6); Lymphocytes % 6.4 %; Mean Corpuscular HGB Conc 30.7 g/dL (31.6-35.5); Mean Corpuscular Hemoglobin 31.5 pg (28.0-33.3); Mean Corpuscular Volume 102.4 fL (83.0-100.0); Mean Platelet Volume 9.6 fL (9.4-12.4); Monocytes # 0.9 K/mcL (0.0-1.3); Neutrophils # 9.4 K/mcL (1.6-8.9); Platelet Count 263 K/mcL (140-400); Red Blood Count 3.72 M/mcL (3.82-4.97); Red Cell Distribution Width 12.6 % (11.5-14.5); Segmented Neutrophils % 80.2 %; White Blood Count 11.7 K/mcL (4.3-11.1)
[2021-09-12 11:06] LABS: Alanine Aminotransferase 6 Units/L (7-52); Albumin 3.4 g/dL (3.5-5.7); Albumin/Globulin Ratio 1.1 (1.1-2.2); Alkaline Phosphatase 59 Units/L (34-104); Aspartate Amino Transferase 16 Units/L (13-39); BUN/Creatinine Ratio 15 (6-26); Bilirubin,Total 0.4 mg/dL (0.3-1.0); Blood Urea Nitrogen 18 mg/dL (8-23); Calcium 9.2 mg/dL (8.6-10.3); Carbon Dioxide 25 mEq/L (23-29); Chloride 109 mEq/L (98-107); Creatine Kinase 155 Units/L (30-223); Globulin 3.2 g/dL (2.4-3.5); Glucose 165 mg/dL (70-105); Osmolality,Calculated 300 (280-300); Potassium 4.4 mEq/L (3.5-5.1); Sodium 142 mEq/L (136-145); Total Protein 6.6 g/dL (6.4-8.9); Troponin I < 0.03 ng/mL (< 0.04); eGFR For African Americans 50 (> 60); eGFR For Non-African Americans 41 (> 60)
[2021-09-12] MEDS ORDERED: Acetaminophen 325 MG TABLET PO PRN (15:35)
[2021-09-12] MEDS ORDERED: Naloxone 0.4 MG/ML INJ IVP PRN (15:35)
[2021-09-12] MEDS ORDERED: Perflutren Lipid Microsphere 1.3 ML in 0.9 % Sodium Chloride 8.7 ML IVP PRN (15:42)
[2021-09-12] MEDS: *HR* Rivaroxaban 10 MG TABLET PO SCH ×2 (16:43→17:14)
[2021-09-12] MEDS ORDERED: Ringers Solution, Lactated 1,000 ML IVC SCH (17:30)
[2021-09-12 21:16] LABS: Folate 10.3 ng/mL (3.0-16.0)
[2021-09-13 02:25] LABS: Basophils % 0.3 %; Eosinophils # 0.7 K/mcL (0.0-0.6); Eosinophils % 6.7 %; Hematocrit 34.3 % (35.3-44.9); Hemoglobin 10.7 g/dL (11.5-15.4); Immature Granulocytes % 0.4 % (0-4); Lymphocytes # 0.9 K/mcL (0.6-4.6); Lymphocytes % 9.5 %; Mean Corpuscular HGB Conc 31.2 g/dL (31.6-35.5); Mean Corpuscular Hemoglobin 31.6 pg (28.0-33.3); Mean Corpuscular Volume 101.2 fL (83.0-100.0); Mean Platelet Volume 9.9 fL (9.4-12.4); Monocytes # 1.1 K/mcL (0.0-1.3); Monocytes % 11.4 %; Platelet Count 262 K/mcL (140-400); Red Blood Count 3.39 M/mcL (3.82-4.97); Red Cell Distribution Width 12.5 % (11.5-14.5); Segmented Neutrophils % 71.7 %; White Blood Count 9.8 K/mcL (4.3-11.1)
[2021-09-13 02:40] LABS: Alanine Aminotransferase 8 Units/L (7-52); Alkaline Phosphatase 54 Units/L (34-104); Aspartate Amino Transferase 21 Units/L (13-39); BUN/Creatinine Ratio 14 (6-26); Bilirubin,Total 0.4 mg/dL (0.3-1.0); Blood Urea Nitrogen 13 mg/dL (8-23); Calcium 8.6 mg/dL (8.6-10.3); Carbon Dioxide 26 mEq/L (23-29); Chloride 109 mEq/L (98-107); Chol/HDL Ratio 2.4 (0-4.9); Cholesterol 102 mg/dL (< 200); Globulin 3.1 g/dL (2.4-3.5); Glucose 95 mg/dL (70-105); HDL Cholesterol 42 mg/dL (40-59); LDL Cholesterol,Calculated 45 mg/dL (< 100); Osmolality,Calculated 284 (280-300); Potassium 3.9 mEq/L (3.5-5.1); Sodium 137 mEq/L (136-145); Total Protein 6.1 g/dL (6.4-8.9); Triglycerides 73 mg/dL (< 150); eGFR For African Americans > 60 (> 60); eGFR For Non-African Americans 58 (> 60)
[2021-09-13 02:51] LABS: Thyroid Stimulating Hormone 1.809 mcIU/mL (0.340-5.600)
[2021-09-13] MEDS: Levothyroxine 25 MCG TABLET PO SCH (05:55)
[2021-09-13 06:38] LABS: Bilirubin,Urine Negative (Negative); Blood,Urine Trace (Negative); Clarity,Urine Clear (Clear); Color,Urine Light-Yellow (Yellow); Glucose,Urine (UA) Normal (Normal); Ketones,Urine Negative (Negative); Leukocyte Esterase,Urine Small (Negative); Mucus,Urine Few per lpf (None-Few); Nitrite,Urine Negative (Negative); Protein,Urine Trace mg/dL (Neg-Trace); Specific Gravity,Urine > 1.030 (1.010-1.025); Squamous Epithelial Cell,Urine Moderate per hpf (None-Few); Urobilinogen,Urine Normal (Normal)
[2021-09-13 08:41] LABS: Estimated Average Glucose 117 mg/dl; Hemoglobin A1C 5.7 %
[2021-09-13] MEDS: Cholecalciferol (D-3) 1,000 UNIT (25MCG) TABLET PO SCH (09:59)
[2021-09-13] MEDS: Multivit/Ca/Min/Fe/FA 1 TAB TABLET PO SCH (09:59)
[2021-09-13] MEDS: Sulfamethoxazole/Trimeth DS 1 EACH TABLET PO SCH ×2 (09:59→19:47)
[2021-09-13] MEDS: Metoprolol XL (24 HR) Succ 25 MG TAB.ER.24H PO SCH (10:00)
[2021-09-13 11:38] LABS: Amphetamine Screen,Urine Negative ng/mL (Cutoff=1000); Barbiturate Screen,Urine Negative ng/mL (Cutoff=200); Benzodiazepines Screen,Urine Positive ng/mL (Cutoff=200); Cannabinoid Screen,Urine Negative ng/mL (Cutoff = 50); Cocaine Screen,Urine Negative ng/mL (Cutoff= 300); Opiate Screen,Urine Negative ng/mL (Cutoff=300); Phencyclidine Screen,Urine Negative ng/mL (Cutoff=25)
[2021-09-13] MEDS: *HR* Rivaroxaban 10 MG TABLET PO SCH (16:31)
[2021-09-14 03:50] LABS: Basophils % 0.4 %; Eosinophils # 0.7 K/mcL (0.0-0.6); Hematocrit 30.3 % (35.3-44.9); Hemoglobin 9.9 g/dL (11.5-15.4); Immature Granulocytes % 0.4 % (0-4); Lymphocytes # 1.2 K/mcL (0.6-4.6); Lymphocytes % 14.7 %; Mean Corpuscular HGB Conc 32.7 g/dL (31.6-35.5); Mean Corpuscular Hemoglobin 32.2 pg (28.0-33.3); Mean Corpuscular Volume 98.7 fL (83.0-100.0); Mean Platelet Volume 9.2 fL (9.4-12.4); Monocytes # 1.1 K/mcL (0.0-1.3); Monocytes % 12.5 %; Neutrophils # 5.4 K/mcL (1.6-8.9); Platelet Count 282 K/mcL (140-400); Red Blood Count 3.07 M/mcL (3.82-4.97); Red Cell Distribution Width 12.5 % (11.5-14.5); White Blood Count 8.5 K/mcL (4.3-11.1)
[2021-09-14 03:59] LABS: Alanine Aminotransferase 12 Units/L (7-52); Albumin 2.9 g/dL (3.5-5.7); Alkaline Phosphatase 51 Units/L (34-104); Aspartate Amino Transferase 27 Units/L (13-39); BUN/Creatinine Ratio 12 (6-26); Bilirubin,Total 0.3 mg/dL (0.3-1.0); Blood Urea Nitrogen 12 mg/dL (8-23); Calcium 8.1 mg/dL (8.6-10.3); Carbon Dioxide 24 mEq/L (23-29); Chloride 106 mEq/L (98-107); Globulin 2.8 g/dL (2.4-3.5); Glucose 96 mg/dL (70-105); Osmolality,Calculated 278 (280-300); Sodium 134 mEq/L (136-145); Total Protein 5.7 g/dL (6.4-8.9); eGFR For African Americans > 60 (> 60); eGFR For Non-African Americans 53 (> 60)
[2021-09-14] MEDS: Levothyroxine 25 MCG TABLET PO SCH (05:33)
[2021-09-14] MEDS: Cholecalciferol (D-3) 1,000 UNIT (25MCG) TABLET PO SCH (08:10)
[2021-09-14] MEDS: Sulfamethoxazole/Trimeth DS 1 EACH TABLET PO SCH ×2 (08:10→19:40)
[2021-09-14] MEDS: Multivit/Ca/Min/Fe/FA 1 TAB TABLET PO SCH (08:10)
[2021-09-14] MEDS: Metoprolol XL (24 HR) Succ 25 MG TAB.ER.24H PO SCH (08:11)
[2021-09-14] MEDS: *HR* Rivaroxaban 10 MG TABLET PO SCH (16:30)
[2021-09-14] MEDS: Thiamine (B-1) 100 MG TABLET PO SCH (16:30)
[2021-09-15 04:03] LABS: Basophils % 0.4 %; Eosinophils # 0.6 K/mcL (0.0-0.6); Eosinophils % 6.9 %; Hematocrit 31.7 % (35.3-44.9); Hemoglobin 10.3 g/dL (11.5-15.4); Immature Granulocytes % 0.5 % (0-4); Lymphocytes # 1.3 K/mcL (0.6-4.6); Mean Corpuscular HGB Conc 32.5 g/dL (31.6-35.5); Mean Corpuscular Hemoglobin 31.8 pg (28.0-33.3); Mean Corpuscular Volume 97.8 fL (83.0-100.0); Mean Platelet Volume 9.6 fL (9.4-12.4); Monocytes # 1.1 K/mcL (0.0-1.3); Monocytes % 13.8 %; Neutrophils # 5.1 K/mcL (1.6-8.9); Platelet Count 308 K/mcL (140-400); Red Blood Count 3.24 M/mcL (3.82-4.97); Red Cell Distribution Width 12.6 % (11.5-14.5); Segmented Neutrophils % 62.4 %; White Blood Count 8.1 K/mcL (4.3-11.1)
[2021-09-15 04:25] LABS: Alanine Aminotransferase 22 Units/L (7-52); Albumin 2.9 g/dL (3.5-5.7); Alkaline Phosphatase 52 Units/L (34-104); Aspartate Amino Transferase 36 Units/L (13-39); BUN/Creatinine Ratio 16 (6-26); Bilirubin,Total 0.3 mg/dL (0.3-1.0); Blood Urea Nitrogen 17 mg/dL (8-23); Calcium 8.3 mg/dL (8.6-10.3); Carbon Dioxide 24 mEq/L (23-29); Chloride 106 mEq/L (98-107); Globulin 2.9 g/dL (2.4-3.5); Glucose 103 mg/dL (70-105); Magnesium 1.8 mg/dL (1.6-2.6); Osmolality,Calculated 282 (280-300); Sodium 135 mEq/L (136-145); Total Protein 5.8 g/dL (6.4-8.9); eGFR For African Americans > 60 (> 60); eGFR For Non-African Americans 51 (> 60)
[2021-09-15] MEDS: Levothyroxine 25 MCG TABLET PO SCH (05:21)
[2021-09-15] MEDS: Thiamine (B-1) 100 MG TABLET PO SCH (10:17)
[2021-09-15] MEDS: Metoprolol XL (24 HR) Succ 25 MG TAB.ER.24H PO SCH (10:17)
[2021-09-15] MEDS: Sulfamethoxazole/Trimeth DS 1 EACH TABLET PO SCH (10:17)
[2021-09-15] MEDS: Multivit/Ca/Min/Fe/FA 1 TAB TABLET PO SCH (10:17)
[2021-09-15] MEDS: Cholecalciferol (D-3) 1,000 UNIT (25MCG) TABLET PO SCH (10:17)
[2021-09-15] MEDS: *HR* Rivaroxaban 15 MG TABLET PO SCH (16:12)
[2021-09-16 01:54] LABS: Hematocrit 33.2 % (35.3-44.9); Hemoglobin 10.6 g/dL (11.5-15.4); Mean Corpuscular HGB Conc 31.9 g/dL (31.6-35.5); Mean Corpuscular Hemoglobin 31.2 pg (28.0-33.3); Mean Corpuscular Volume 97.6 fL (83.0-100.0); Platelet Count 310 K/mcL (140-400); Red Cell Distribution Width 12.5 % (11.5-14.5); White Blood Count 8.6 K/mcL (4.3-11.1)
[2021-09-16 03:01] LABS: BUN/Creatinine Ratio 14 (6-26); Blood Urea Nitrogen 15 mg/dL (8-23); Calcium 8.6 mg/dL (8.6-10.3); Carbon Dioxide 20 mEq/L (23-29); Chloride 103 mEq/L (98-107); Glucose 107 mg/dL (70-105); Osmolality,Calculated 277 (280-300); Potassium 4.1 mEq/L (3.5-5.1); Sodium 133 mEq/L (136-145); eGFR For African Americans > 60 (> 60); eGFR For Non-African Americans 50 (> 60)
[2021-09-16] MEDS: Levothyroxine 25 MCG TABLET PO SCH (05:01)
[2021-09-16] MEDS: Cholecalciferol (D-3) 1,000 UNIT (25MCG) TABLET PO SCH (07:51)
[2021-09-16] MEDS: Multivit/Ca/Min/Fe/FA 1 TAB TABLET PO SCH (07:51)
[2021-09-16] MEDS: Thiamine (B-1) 100 MG TABLET PO SCH (07:51)
[2021-09-16] MEDS: Metoprolol XL (24 HR) Succ 25 MG TAB.ER.24H PO SCH (07:51)
[2021-09-16] MEDS: *HR* Rivaroxaban 15 MG TABLET PO SCH (16:14)
[2021-09-17 03:58] LABS: Hematocrit 31.9 % (35.3-44.9); Hemoglobin 10.3 g/dL (11.5-15.4); Mean Corpuscular HGB Conc 32.3 g/dL (31.6-35.5); Mean Corpuscular Hemoglobin 31.7 pg (28.0-33.3); Mean Corpuscular Volume 98.2 fL (83.0-100.0); Mean Platelet Volume 9.3 fL (9.4-12.4); Platelet Count 331 K/mcL (140-400); Red Blood Count 3.25 M/mcL (3.82-4.97); Red Cell Distribution Width 12.4 % (11.5-14.5); White Blood Count 9.1 K/mcL (4.3-11.1)
[2021-09-17 04:26] LABS: Calcium 9.1 mg/dL (8.6-10.3); Potassium 4.3 mEq/L (3.5-5.1)
[2021-09-17] MEDS: Levothyroxine 25 MCG TABLET PO SCH (05:28)
[2021-09-17] MEDS: Thiamine (B-1) 100 MG TABLET PO SCH (07:45)
[2021-09-17] MEDS: Multivit/Ca/Min/Fe/FA 1 TAB TABLET PO SCH (07:45)
[2021-09-17] MEDS: Cholecalciferol (D-3) 1,000 UNIT (25MCG) TABLET PO SCH (07:45)
[2021-09-17] MEDS: Metoprolol XL (24 HR) Succ 25 MG TAB.ER.24H PO SCH (07:45)
[2021-09-17 07:53] VITALS: PULSE 72
[2021-09-17 10:48] VITALS: BP 96/63; TEMP 99.5; O2SAT 96
[2021-09-17 12:08] LABS: Adenovirus Not Detected (Not Detect); Bordetella Pertussis Not Detected (Not Detect); Chlamydophila pneumoniae Not Detected (Not Detect); Coronavirus 229E Not Detected (Not Detect); Coronavirus HKU1 Not Detected (Not Detect); Coronavirus NL63 Not Detected (Not Detect); Coronavirus OC43 Not Detected (Not Detect); Human Metapneumovirus Not Detected (Not Detect); Human Rhinovirus/Enterovirus Not Detected (Not Detect); Influenza A Subtype 2009 H1 Not Detected (Not Detect); Influenza B Not Detected (Not Detect); Mycoplasma pneumoniae Not Detected (Not Detect); Parainfluenza Virus 1 Not Detected (Not Detect); Parainfluenza Virus 2 Not Detected (Not Detect); Parainfluenza Virus 3 Not Detected (Not Detect); Parainfluenza Virus 4 Not Detected (Not Detect); Respiratory Syncytial Virus Not Detected (Not Detect); SARS-CoV-2 Not Detected (Not Detect)
== END 2021-09-17 15:46 | DRG 689 ==
LOC: 2ANU 10:08 → EMEROOARM 10:08 → SUATTDRO 15:20 → 2ANU 16:20
PROVIDERS: ADMIT Student in an Organized Health Care Education/Training Program; ATTEND Internal Medicine